=== PATIENT | male | born 1960 | race Caucasian/White ===

== ENCOUNTER 2017-01-09 10:01 | Emergency (ER) | payer OTHER ==
[~2017-01-09] VITALS: Ht 182.9 cm; Wt 86.2 kg
[~2017-01-09 10:01] MED LIST: ALPR2TAB2 PO; BUDE10.2 INH; CARV3.12 PO; HYDR-3658 PO; LEVE250T2 PO; MIRT45TA3 PO; RIFA550T PO; RISP3TAB5 PO; TRIH5TAB2 PO
[2017-01-09] MEDS ORDERED: KETOROLAC TROMETHAMINE INJ 30 MG/ML VIAL ONE (11:00)
[2017-01-09] MEDS: KETOROLAC TROMETHAMINE INJ 30 MG/ML VIAL IM ONE (11:11)
[2017-01-09 13:02] VITALS: BP 128/87
== END 2017-01-09 13:03 | disposition home or self-care (01) ==
LOC: ER 10:03
DX: M54.5 Low back pain (principal); G40.909 Epilepsy, unspecified, not intractable, without status epilepticus; G89.29 Other chronic pain; J44.9 Chronic obstructive pulmonary disease, unspecified; B19.20 Unspecified viral hepatitis C without hepatic coma; Z87.891 Personal history of nicotine dependence; F10.20 Alcohol dependence, uncomplicated; F17.210 Nicotine dependence, cigarettes, uncomplicated; Z91.02 Food additives allergy status
CPT/HCPCS: 72110-TC; A4606; J1885; Z7610

== ENCOUNTER 2022-01-14 10:03 | Inpatient (IN) | payer MEDICARE, OTHER ==
[~2022-01-14] VITALS: Ht 182.9 cm; Wt 54.9 kg
[~2022-01-14 10:03] MED LIST changes: -HYDR-3658 PO; +HYDR-3980 PO; -TRIH5TAB2 PO; +TRIH5TAB3 PO
--- NOTE | 2022-01-14 10:07 | NUR ---
SEEN AND EXAMINED BY DR KING
--- NOTE | 2022-01-14 10:11 | NUR ---
BIBRA 88 FOR GLF FROM BED TO THE FLOOR LAST NIGHT. WAS LYING ON THE FLOOR ALL NIGHT. NO APPARENT TRAUMA NOTED. THE PATIENT BASELINE CONFUSED BUT PER THE PATIENT IS MORE CONFUSED THAN USUAL. THE PATIENT IS RESPONSIVE TO VERBAL STIMULI. RESPIRATION REGULAR AND UNLABORED. ATTACHED TO THE MONITR. WARM BLANKET PROVIDED FOR COMFORT. WILL CONTINUE TO MONITOR THE PATIENT.
--- NOTE | 2022-01-14 10:15 | NUR ---
JAKE (NIECE) [phone] VALENTINO () [phone]
--- NOTE | 2022-01-14 10:21 | NUR ---
TAKEN TO CT
[2022-01-14] MEDS ORDERED: IV NS 0.9% 1,000 ML BAG IV ONE (10:30)
--- NOTE | 2022-01-14 10:45 | NUR ---
[facility]: [phone].
[2022-01-14] MEDS ORDERED: BISA10SU11 RC (11:27)
[2022-01-14] MEDS ORDERED: MORP100S3 SL (11:27)
[2022-01-14] MEDS ORDERED: ALPR2TAB7 PO (11:27)
[2022-01-14] MEDS ORDERED: ACET650S11 RC (11:27)
[2022-01-14] MEDS ORDERED: GABA600T12 PO (11:27)
[2022-01-14] MEDS ORDERED: HYDR-4209 PO (11:27)
[2022-01-14] MEDS ORDERED: LORA-258 SL (11:27)
[2022-01-14] MEDS ORDERED: ONDA4TAB11 SL (11:27)
[2022-01-14] MEDS ORDERED: ALBU18HF2 INH (11:27)
[2022-01-14] MEDS ORDERED: HYOS0.1275 SL (11:27)
[2022-01-14] MEDS ORDERED: QUET100T PO (11:27)
[2022-01-14] MEDS ORDERED: OXYC30TA2 PO (11:27)
[2022-01-14] MEDS ORDERED: RISP0.2515 PO (11:27)
[2022-01-14] MEDS ORDERED: DOCU250C14 PO (11:27)
[2022-01-14] MEDS ORDERED: ZOLP5TAB8 PO (11:27)
--- NOTE | 2022-01-14 12:08 | NUR ---
URINE SAMPLE COLLECTED AND SENT
--- NOTE | 2022-01-14 12:08 | NUR ---
COVID TEST COLLECTED AND SENT
[2022-01-14 12:42] LABS: BILIRUBIN,URINE NEGATIVE (NEGATIVE); COLOR,URINE YELLOW (YELLOW); LEUKOCYTE ESTERASE ,URINE NEGATIVE (NEGATIVE); NITRITE, URINE NEGATIVE (NEGATIVE); PH,URINE 5.5 (5.0-8.0); PROTEIN,URINE 100 mg/dl (NEGATIVE); UGLUCOSE 100 MG/DL mg/dL (NEGATIVE); UROBILINOGEN,URINE 0.2 EU/dL (0.2)
[2022-01-14 12:51] LABS: BASOPHILS % (AUTO) 0.1 % (0.0-2.0); EOSINOPHILS % (AUTO) 0.5 % (0.0-6.0); HEMATOCRIT 24 % (39-51); HEMOGLOBIN 8.2 g/dL (13.5-17.5); LYMPHOCYTES # (AUTO) 0.4 K/uL (0.8-4.8); LYMPHOCYTES % (AUTO) 9.2 % (20.0-44.0); MEAN CORPUSCULAR HGB CONC 34 g/dl (31.0-36.0); MEAN CORPUSCULAR VOLUME 90 fL (80-96); MONOCYTES # (AUTO) 0.3 K/uL (0.1-1.30); MONOCYTES % (AUTO) 6.2 % (2.0-12.0); NEUTROPHILS # (AUTO) 3.9 K/uL (1.8-8.9); WHITE BLOOD COUNT (AUTO) 4.6 K/uL (4.3-11.0)
[2022-01-14 12:53] LABS: PLATELET COUNT (AUTO) 39 K/uL (150-450)
--- NOTE | 2022-01-14 12:54 | NUR ---
RECEIVED CALL FROM LAB. PT CRITICAL RESULT OF PLATELET 39. DR. KING MADE AWARE. NURSE KENROY MADE AWARE.
[2022-01-14 13:16] LABS: CALCIUM, SERUM 10.3 mg/dL (8.5-10.1); CARBON DIOXIDE 23 mmol/L (21-32); CHLORIDE 109 mmol/L (98-107); CREATININE 2.9 mg/dL (0.6-1.3); GLUCOSE 96 mg/dL (74-106); POTASSIUM 3.2 mmol/L (3.5-5.1); SODIUM SERUM 138 mmol/L (136-145); UREA NITROGEN, BLOOD 49 mg/dL (7-18)
[2022-01-14 13:17] LABS: RBC,URINE 21-50 /HPF (0-2); WBC,URINE 0-2 /HPF (0-3)
[2022-01-14 13:19] LABS: SQUAMOUS EPITHELIAL CELL,UR Few /HPF (None Seen); URINE AMORPHOUS URATE Moderate /HPF (None Seen)
[2022-01-14 13:20] LABS: BACTERIA,URINE Moderate /HPF (None Seen)
--- NOTE | 2022-01-14 13:43 | NUR ---
panel on-call paged
--- NOTE | 2022-01-14 13:51 | NUR ---
CALLED NURSING SUP REGARDING PT BED
--- NOTE | 2022-01-14 14:26 | NUR ---
BED GIVEN 304-2
--- NOTE | 2022-01-14 14:38 | NUR ---
REPORT GIVEN TO DESIREE FOR FAM
--- NOTE | 2022-01-14 14:46 | NUR ---
PT TRANSPORTED TO [facility] FLOOR
[2022-01-14 14:52] LABS: BAND % (MANUAL) 6 % (0.0-5.0); LYMPHOCYTES % (MANUAL) 3 % (16-48); MONOCYTES % (MANUAL) 7 % (0-11.0); NEUTROPHILS % (MANUAL) 84 (42-76)
[2022-01-14] MEDS ORDERED: Z GUARD REMEDY 4 OZ OINT TP PRN (15:00)
[2022-01-14] MEDS ORDERED: ONDANSETRON HCL/PF 4 MG/2 ML VIAL IVP PRN (15:00)
--- NOTE | 2022-01-14 15:00 | NUR ---
RN ADMITTING NOTES ADMITTED THIS PATIENT FROM EMERGENCY ROOM, TRANSPORTED VIA STRETCHER ACCOMPANIED BY ER STAFF. PATIENT IS ALERT AND ORIENTED X 2-3. WITH ADMITTING DIAGNOSIS OF ACUTE TOXIC METABOLIC ENCEPHALOPATHY. PATIENT ORIENTED TO STAFF AND ROOM. ON ROOM AIR TOLERATING WELL, SPO2 @100%. NOTED WITH IV ACCESS ON RHAND #22 G AND JENELLE #22G, INTACT AND PATENT, FLUSHES WELL. ALSO WITH F/C INTACT DRAINING CLEAR YELLOW URINE. BODY ASSESSMENT DONE. NOTED WITH SACRAL WOUND UTD AND RIGHT BUTTOCKS WOUND UTD. WOUND CONSULT ORDERED. PHOTOS TAKEN, PLACED IN CHART. SAFETY MEASURES IN PLACE. BED IN LOWEST AND LOCKED POSITION, SR UP X2, CALL LIGHT PLACED WITHIN EASY REACH. WILL CONTINUE TO MONITOR.
[2022-01-14] MEDS: IV NS 0.9% 1,000 ML IV PRN (15:34)
[2022-01-14 16:00] VITALS: BP 145/67
[2022-01-14] MEDS: CEFEPIME 2 GM in IV D5W 100 ML IV SCH (18:25)
--- NOTE | 2022-01-14 19:33 | NUR ---
MS VILLASENOR OPENING NOTES PATIENT A/OX2-3, GERMAN SPEAKING. RECEIVED REPORT, WILL CONTINUE PLAN OF CARE. PATIENT TOLERATING ROOM AIR WELL. PER OR, PATIENT WILL BE NPO BY MIDNIGHT, PATIENT AWARE. R HAND AND JENELLE #22 IVS INTACT. NO SIGNS OF REDNESS OR INFILTRATION NOTED. SIDE RAILS UPX2, WILL CONTINUE TO MONITOR. Addendum: 01/14/22 at 2007 by EDWIN MICHEL RN MANAGER COLLECTION AT BEDSIDE, MANAGER COLLECTION ALSO AWARE PATIENT NPO AFTER MIDNIGHT
--- NOTE | 2022-01-14 19:40 | NUR ---
MS RN NOTES SPOKE WITH MARE CAMPBELL, PER PATIENT, MARE IS CLINICAL NURSING COORDINATOR FOR UPDATES. MARE WOULD LIKE DOCTOR TO SPEAK WITH HER TOMORROW MORNING, WILL ENDORSE TO ONCOMING SHIFT.
[2022-01-14 20:00] VITALS: BP 124/63
--- NOTE | 2022-01-14 20:07 | NUR ---
MS RN NOTES DOCTOR AND AUTOMOBILE CARPETS MOLDER AT BEDSIDE.
[2022-01-14 21:34] LABS: ALANINE AMINOTRANSFERASE 16 U/L (12-78); ALBUMIN 1.8 g/dL (3.4-5.0); ALKALINE PHOSPHATASE 101 U/L (46-116); ASPARTATE AMINOTRANSFERASE 18 U/L (15-37); BILIRUBIN,DIRECT 0.2 mg/dL (0.0-0.2); BILIRUBIN,TOTAL 0.7 mg/dL (0.2-1.0)
--- NOTE | 2022-01-14 23:43 | NUR ---
MS RN NOTES MRSA NASAL SWAB COLLECTED VIA R NARE, CHARGE NURSE AWARE.
--- NOTE | 2022-01-15 01:28 | NUR ---
MS RN NOTES FIRER LOCOMOTIVE CRANE AT BEDSIDE, PATIENT REQUESTED TO USE RESTROOM WITH ASSISTANCE. PATIENT IS FALL RISK. PATIENT AGREED TO USE BED GODFREY.
[2022-01-15] MEDS: IV NS 0.9% 1,000 ML IV PRN ×2 (05:13→20:34)
--- NOTE | 2022-01-15 06:38 | NUR ---
MS RN CLOSING NOTES PATIENT AWAKE IN BED, A/OX2, TURKS AND CAICOS ISLANDER SPEAKING, SLOW SPEAKING; REQUESTED FOR TV TO BE TURNED ON; NO S/S OF SOB; NO PAIN OR DISTRESS NOTED; PATIENT TOLERATING ROOM AIR WELL; JENELLE 22G INTACT, FLUSHING WELL; NO SIGNS OF REDNESS OR INFILTRATION; TOLERATING NS @ 75ML/HR; SUÁREZ CATH IN PLACE, WITH CLOUDY YELLOWISH URINE OUTPUT OF 600CCS; SIDE RAILS UPX2, CALL LIGHT WITHIN REACH ALL NEEDS RENDERED, WILL ENDORSE PLAN OF CARE TO ONCOMING SHIFT
[2022-01-15 06:59] LABS: BASOPHILS % (AUTO) 0.1 % (0.0-2.0); EOSINOPHILS % (AUTO) 0.6 % (0.0-6.0); HEMATOCRIT 22 % (39-51); HEMOGLOBIN 7.5 g/dL (13.5-17.5); LYMPHOCYTES # (AUTO) 0.4 K/uL (0.8-4.8); LYMPHOCYTES % (AUTO) 11.3 % (20.0-44.0); MEAN CORPUSCULAR HGB CONC 34 g/dl (31.0-36.0); MEAN CORPUSCULAR VOLUME 90 fL (80-96); MONOCYTES # (AUTO) 0.3 K/uL (0.1-1.30); MONOCYTES % (AUTO) 6.9 % (2.0-12.0); NEUTROPHILS # (AUTO) 3.1 K/uL (1.8-8.9); NEUTROPHILS % (AUTO) 81.1 % (43.0-81.0); RED BLOOD CELL COUNT(AUTO) 2.47 MIL/uL (4.5-6.0); WHITE BLOOD COUNT (AUTO) 3.8 K/uL (4.3-11.0)
[2022-01-15 07:19] LABS: PLATELET COUNT (AUTO) 35 K/uL (150-450)
--- NOTE | 2022-01-15 07:20 | NUR ---
MS RN NOTES RECEIVED REPORT FROM LAB, CRITICAL PLATELET RESULT 35. MD IS AWARE, PATIENT PLATELET ON ADMISSION 39.
[2022-01-15 08:00] VITALS: BP 143/71
[2022-01-15] MEDS: ACETAMINOPHEN 325 MG TABLET PO PRN ×2 (09:19→22:08)
[2022-01-15] MEDS: PANTOPRAZOLE 40 MG VIAL IV SCH (09:19)
--- NOTE | 2022-01-15 09:19 | NUR ---
given tylenol for back pain.
--- NOTE | 2022-01-15 10:17 | NUR ---
WOUND CARE CONSULT: PT PRESENTS WITH CACHEXIA AND UNSTAGEABLE NECROTIC PRESSURE ULCERS TO SACRUM AND RT BUTTOCK, PRESENT ON ADMISSION. ODOR NOTED. SURGICAL CONSULT CALLED TO DR MARIANA OHARA. RECOMMENDATIONS MADE FOR SKIN PROTECTION AND WOUND CARE. DISCUSSED WITH NURSING STAFF. PT IS ON [facility] BED. IN AGREEMENT WITH PLAN OF CARE. DIETARY CONSULT IN PLACE. Addendum: 01/15/22 at 1020 by CAROLYN ANDRADE WNDNU Amended: Links added.
[2022-01-15 10:45] LABS: IRON, SERUM 106 ug/dl (50-175); TOTAL IRON BINDING CAPACITY 118 ug/dl (250-450)
[2022-01-15] MEDS ORDERED: QUETIAPINE FUMARATE 100 MG TABLET PO PRN (11:00)
[2022-01-15] MEDS ORDERED: ACETAMINOPHEN 650 MG/SUPP.RECT RC PRN (11:00)
[2022-01-15] MEDS ORDERED: HYOSCYAMINE SULFATE 0.125 MG TAB.SUBL SL PRN (11:00)
[2022-01-15] MEDS ORDERED: ONDANSETRON HCL/PF 4 MG/2 ML VIAL IV PRN (11:00)
[2022-01-15] MEDS ORDERED: HYDROCODONE/APAP 5/325MG TABLET PO PRN (11:00)
[2022-01-15] MEDS ORDERED: ALBUTEROL FS 2.5 MG/3 ML VIAL.NEB NEB PRN (11:00)
[2022-01-15] MEDS ORDERED: BISACODYL SUPP (10 MG) 10 MG/SUPP.RECT SUPP.RECT RC PRN (11:00)
[2022-01-15] MEDS ORDERED: LORAZEPAM 0.5 MG TABLET SL PRN (11:00)
--- NOTE | 2022-01-15 11:30 | NUR ---
niece and girlfriend calling freq. to check on pt.
[2022-01-15 11:35] LABS: ALANINE AMINOTRANSFERASE 19 U/L (12-78); ALBUMIN 1.5 g/dL (3.4-5.0); ALKALINE PHOSPHATASE 81 U/L (46-116); ASPARTATE AMINOTRANSFERASE 17 U/L (15-37); BILIRUBIN,TOTAL 0.6 mg/dL (0.2-1.0); CALCIUM, SERUM 10.2 mg/dL (8.5-10.1); CARBON DIOXIDE 20 mmol/L (21-32); CHLORIDE 113 mmol/L (98-107); CREATININE 2.7 mg/dL (0.6-1.3); GLUCOSE 115 mg/dL (74-106); MAGNESIUM 2.2 mg/dL (1.8-2.4); PHOSPHORUS 2.4 mg/dL (2.5-4.9); POTASSIUM 3.4 mmol/L (3.5-5.1); SODIUM SERUM 140 mmol/L (136-145); TOTAL PROTEIN, SERUM 8.6 g/dL (6.4-8.2); UREA NITROGEN, BLOOD 45 mg/dL (7-18)
[2022-01-15] MEDS: FUROSEMIDE 20 MG/2 ML VIAL IV SCH (12:08)
--- NOTE | 2022-01-15 13:00 | NUR ---
social service in and requesting psych consult. pt. verb. to her suicidal ideation. states pt. altered and psych consult not appropriate.
[2022-01-15] MEDS: ENSURE ENLIVE 237 ML LIQUID (VANILLA) PO SCH ×2 (13:30→17:47)
--- NOTE | 2022-01-15 14:20 | NUR ---
SS Consult: SS Consult requested for safe discharge planning. Per EMR, the paramedics were called to the home by and found the pt. on the floor, confused, with slurred speech. The pt. is a 61 -year old male. Upon SS consult, the pt. is Alert & Oriented x 3 and makes good eye contact. The pt. appears unkempt. Pt. has slurred speech and has depressed mood and flat affect. SW explored pt.s living situation. Per pt. he lives at home [[address] [address]] with his elderly , Татьяна Hart [phone]. Pt. gave SW verbal consent to speak with his . SW explored pt.s drug & ETOH use. Pt. denies drug or alcohol use. SW explored pt.s mental health Hx. Pt. states he ahs been diagnosed with Schizoaffective Disorder in the past and is on medication: Risperdal, Wellbutrin, Seroquel & Xanax. Pt. states he experiences intermittent SI and has no plan for suicide. Pt. states he also experiencing auditory hallucination telling him to kill himself and visual hallucinations of people dancing per pt. Pt. denies current HI. SW spoke to pt.'s nurse, Annette and ordered Psych consult. Per pt., he allegedly ambulates at home with walker but usually stays in bed. Per nursing reports, pt. has necrotic pressure ulcers. SW explored pt.s support system, caregiver, etc. Pt. states it is just him and his and has no other caregivers and no children or other family. SW called and spoke to the pt.s , Татьяна Hart [phone] to gather collateral information. did confirm they have no caregivers or help at home. Татьяна states she helps the pt. as much as she can but she sound elderly as well. SW will follow up and make APS report to confirm Татьяна is ok due to safety concerns. Plan: Patient stated he is open to going to a SNF placement or home with HH & IHSS caregivers. SW provided pt. with senior resources including: HELP AT HOME CAREGIVER SUPPORT: In Home Support Services (Must have Medi-Lauri to be eligible) *Ask for a list of agencies that provide services to assist with care in the home. Local Senior Centers also have listings of care providers. ABUSE PREVENTION: ELDER ABUSE HOTLINE (16/06) ADULT PROTECTIVE SERVICES HOTLINE LONG-TERM CARE [facility] Region AREA ON AGING (HOTLINE) ADULT DAY HEALTH CARE CARE CENTERS: Private pay or Medi-[facility] funded adult day care [facility] Day Health Care [facility] , [facility] , [facility] , [facility] Adult Day Health Care , [facility] Adult Day Health Care , [facility] Adult Daycare Center , [place] ONE Generation [place] , [facility] , [place] ALZHEIMERS DISEASE/DEMENTIA: Alzheimers Association Helpline [facility] Chapter www.alz.org/[facility] Department of Aging www.lacity.org Family Caregiver Foley www.caregiver.org [place] Caregiver Resources Center/Family Support www.ka[facility].org CANCER RESOURCES: Nigerian Cancer Society www.cancer.org Cancer Support Community www.CancerSupportVvsb.org: CancerCare www.cancercare.org Tre [facility] Cancer Support Center www.spark.org COMMUNITY HEALTH ASSOCIATIONS: AARP www.aarp.org ALS Association (ask for Guera) www.als.org Nigerian Diabetes Association www.diabetes.org Nigerian Heart Association www.heart.org Nigerian Lung Association www.lungusa.org Nigerian Parkinson Disease Association www.apdaparkinson.org Nigerian Platte , www.redcross.org Arthritis Foundation www.arthritis.org Crohns & Colitis Foundation of Nigerian www.ccfa.org/chapters/[place] National Multiple Sclerosis Society www.nationalmssociety.org Myasthenia Gravis Foundation www.myasthenia-ca.org National Stroke Association www.stroke.org CONSERVATORSHIP & GUARDIANSHIP: AAREmery Emma Darling Legal Services Center for Health Care Rights Eldercare Information and Referral Community Affairs Manager Foundation [facility]: [facility] Referral Service [facility] Legal Services Office of the Public Guardian Stewardson EYESIGHT DISORDER RESOURCES: Nigerian Macular Degeneration Foundation [facility] www.bragreen cross hospitalinstitute.org GRIEF AND BEREAVEMENT RESOURCES: The Gathering Place , [facility] THE HOPE Connection , [facility] Bereavement Center , [place] HEARING DISORDER RESOURCES: [place] Telephone Access Program Deaf and Disabled Telecommunications Program www.ddtp.cpuc.ca.gov HearRx Hearing Centers ([place]) Better Hearing Systems , [place] GLAD ([facility] Agency on Deafness) V/ TTY; Riveting Machine Operator Declan [facility] Hearing Foundation -low income hearing aid assistance www.[facility] campusfoundation.org [place] Hearing Care , Tiffany HOME SAFETY MODIFICATIONS AND EQUIPMENT: Senior centers have additional referrals. [facility] and Bday Investment Dept. Handyworker Program (low income) or Visit http://hcidla.[facility].org/obk-esiihf-xn for more information National Seating and Mobility and/or ; Forever Active www.foreveractivemed.Qual [place] Stay Home Safe www.Stayhomesafe.Qual Canal LIFE ALERT RESPONSE SYSTEM: Powerhouse Biologicsline Services 157-621-1974 www. Urban Metrics Life Alert 801-480-8691 www.Lucidity (MemberRx) Life Station 180-992-9572 www.Offeramaation.Qual Canal Safe Return 835-802-7327 www.alz.or/safereturn Cell Phones for Seniors www.TechFaith Wireless Technology MEALS AND FOOD PROGRAMS: [place] Meals on Wheels [phone] [place] Meals on Wheels [phone] [facility] [phone] Seth to the Homebound [phone] [place] to the Homebound [phone] [facility] to the Homebound [phone] [facility] to the Homebound [phone] [facility] Suleman [place] [phone] [facility] [phone] ONE Generation [phone] [facility] Health Systems [phone] [facility] [phone] Meals on Wheels [phone] For all ages: $6.85/ meal w side. Delivered M-F from 10 am-1pm. Application and payment is done over the phone. Frozen meals available for weekends. Emergency Food [facility] [phone] Jeremias Assembler [phone] [facility] [phone] Heidi Mcdowell Outreach- Brown bag lunches [phone] [facility] [phone] MEAL/GROCERY DELIVERY PROGRAMS: [facility] Gourmet Meals [phone]- [facility] [phone]- [facility] Magic Kitchen [phone] Moms Meals [phone] (ask Wilson for Discount Select grocery stores may provide delivery. MEDICAL INSURANCE SUPPORT SERVICES: Center for Health Care Rights [phone] Health Insurance Counseling/Advocacy Programs (HICAP)-Must have Medicare. Offers counseling for Medi-Lauri eligibility [phone] [facility] of Public Assembler [phone] www.[facility].ca.gov Medicare [phone] www.socialsecurity.org Social Security [phone] SENIOR ACTIVITY PROGRAMS: *Contact a local senior center, adult school, recreation facility or community college for education, fitness, recreation, and social programs. Aquatic Therapy and Adapted Exercise programs through [facility] [phone] Encore [facility] [phone] www.[facility]/encore H2U- Senior Friends [phone] [place] Senior Programs [phone] www.oasisnet.org Suddenly 65 www.ggmnstky11.com SENIOR CENTERS: [facility] [phone] [facility] [phone] [phone] [facility] [phone] [facility] [phone] [facility] [phone] [facility] [phone] [facility] [phone] One Generation, [facility] [phone] [facility] [phone] [facility] [phone] [facility] [phone] [facility] [phone] TRANSPORTATION: Local [facility] Centers may have applications for transportation programs and additional resources. ACCESS Services [phone] Transportation for seniors and disabled persons 7 days a week requiring 254 hr. advance reservation. Must apply and register for program justin eligible. Prosensa [phone] or [phone] Transportation for seniors and persons with ADA card/metro disabled card in the [facility]. M-F only. Must register for services. ONE GENERATION [phone] Serves 65 years + in conjunction with Magnetecs program. Must be registered with both programs. A to B Transport [phone] Provides wheelchair/gurney van service. Adult Medical Transport [phone] Accepts [facility] with prior authorization. Care Van [phone] Provides wheelchair Transport. [facility] Wide Transportation [phone] Provides gurney service [facility] [phone] Gurney Transport. [facility] Transportation [phone] wheelchair & gurney transport [facility] Transportation [phone] wheelchair & gurney transport [place] Non-Emergency Transport [phone] wheelchair & gurney transport [facility] Living [place] [phone] Short Term Transportation primarily for adults with disabilities on social security income. Nominal fee may apply and a reservation is required. [facility] Cab [phone] or [phone] SendMe [phone] [place] [address] Referral Services -[phone] For additional programs & services VETERANS RESOURCES: Submissions for Aid and Attendance should be done directly to Federal VA office locatd at : [address] [facility] [phone] National Caregiver Support Line [phone] Lauri Terrell Veterans Services Field Office [phone] [place] Department of Affairs [phone] Pension Information [phone]
--- NOTE | 2022-01-15 14:28 | NUR ---
rn spoke with charge nurse and psych consult ordered due to hx of s/i and depression.chrg. rn to notify psych md dr. lopez senior fire protection engineer.
[2022-01-15 15:54] LABS: LYMPHOCYTES % (MANUAL) 7 % (16-48); MONOCYTES % (MANUAL) 6 % (0-11.0); NEUTROPHILS % (MANUAL) 87 (42-76)
[2022-01-15 16:00] VITALS: BP 116/59
--- NOTE | 2022-01-15 17:15 | NUR ---
RN NOTIFIED DR. SPEARS OF PHOSPHOROUS LEVEL 2.4.MD WILL FOLLOW UP.
[2022-01-15] MEDS: DAKINS QUARTER STRENGTH (0.125%) 480 ML BOTTLE TOP SCH (17:53)
[2022-01-15] MEDS: GABAPENTIN 300 MG CAPSULE PO SCH (17:58)
[2022-01-15] MEDS: risperiDONE 1 MG TABLET PO SCH (17:58)
[2022-01-15] MEDS: DOCUSATE SODIUM 250 MG CAPSULE PO SCH (17:58)
--- NOTE | 2022-01-15 18:00 | NUR ---
received pt. in am,calling out freq. confused at times,cooperative and med compliant.family in to visit.
[2022-01-15] MEDS: CEFEPIME 2 GM in IV D5W 100 ML IV SCH (18:03)
--- NOTE | 2022-01-15 19:15 | NUR ---
MS RN OPENING NOTES: RECEIVED PATIENT IN BED, AWAKE, A/O X4. NO S/S OF DISTRESS NOTED. WITH FAMILY MEMBERS AT THE BEDSIDE. HOB ELEVATED. WITH SUÁREZ CATHETER INTACT DRAINING YELLOW URINE OUTPUT. CALL LIGHT WITHIN REACH. BED ALARM ON. BED IN LOWEST AND LOCKED POSITION. PER FAMILY MEMBER, PATIENT HAD A LARGE BM EARLIER, PATIENT WENT TO THE BEDSIDE COMMODE ASSISTED BY THE FAMILY MEMBER.
[2022-01-15 20:05] VITALS: BP 128/71
[2022-01-15] MEDS: MORPHINE SULFATE INJ 2 MG/ML DISP.SYRIN IV PRN (20:15)
[2022-01-15 20:50] LABS: HEMOGLOBIN 6.6 g/dL (13.5-17.5)
--- NOTE | 2022-01-15 20:52 | NUR ---
RECEIVED A CALL FROM LAB FOR HGB 6.6, INFORMED ADONIS HARMON.
[2022-01-15 21:21] LABS: THYROID STIMULATING HORMONE 0.724 uIU/mL (0.358-3.74)
[2022-01-15 22:33] LABS: FERRITIN > 1000 ng/mL (8-388)
--- NOTE | 2022-01-15 22:42 | NUR ---
PATIENT SIGNED THE CONSENT FOR BLOOD TRANSFUSION AND ATTACHED TO THE CHART.
--- NOTE | 2022-01-15 23:36 | NUR ---
CALLED THE BLOOD BANK AND TALKED TO STEFAN ALSTON: TO FOLLOW UP IF THE ONE UNIT PRBC IS READY, NOT READY YET ACCORDING TO HIM.
[2022-01-16] VITALS (9 sets, daily range): BP systolic 108–122; BP diastolic 52–64
--- NOTE | 2022-01-16 01:57 | NUR ---
CALLED THE LAB AND SPOKE TO PHUONG ALSTON: PRBC, AND HE SAID THAT NOBODY IN THE BLOOD BANK RIGHT NOW THAT CAN ISSUE THE PRBC UNTIL 0600 TODAY, INFORMED ADONIS HARMON.
[2022-01-16] MEDS: MORPHINE SULFATE INJ 2 MG/ML DISP.SYRIN IV PRN ×3 (02:07→20:15)
--- NOTE | 2022-01-16 02:25 | NUR ---
PATIENT SIGNED THE CONSENT FOR EXCISIONAL DEBRIDEMENT OF RIGHT BUTTOCK AND SACRAL PRESSURE ULCER AND ATTACHED TO THE CHART.
--- NOTE | 2022-01-16 07:02 | NUR ---
CALLED THE BLOOD BANK AND SPOKE TO KATJA ALSTON: SHE SAID THAT PRBC WILL BE READY IN 30MINS AND SHE WILL CALL THE RN DAYSHIFT WHEN IT'S READY, WILL ENDORSE TO THE NEXT SHIFT RN.
[2022-01-16 07:07] LABS: IMMUNOGLOBULIN A, SERUM 7 mg/dL (61-437); IMMUNOGLOBULIN G, SERUM 5351 mg/dL (603-1613); IMMUNOGLOBULIN M, SERUM <5 mg/dL (20-172)
--- NOTE | 2022-01-16 07:34 | NUR ---
RECEIVED A CALL FROM BLOOD BANK RE: BLOOD IS READY, ENDORSED TO THE RN KULDIP.
--- NOTE | 2022-01-16 08:06 | NUR ---
RN Opening Note Patient received in bed AO x 4, able to responds all stimuli. Respiratory even and unlabored on room air. No distress observed. Skin is warm to touch, keep clean/dry, intact IV site. Kept elevated HOB for ensure airway/aspiration precaution and remain lower position of the bed for safety. call light within reach, will continue to monitor.
[2022-01-16 08:07] LABS: *ANA ANTI-CENTROMERE B AB <0.2 AI (0.0-0.9); *ANA ANTI-DNA(DS) AB, QN <1 IU/mL (0-9); *ANA ANTI-JO-1 <0.2 AI (0.0-0.9); *ANA ANTICHROMATIN ANTIBODY <0.2 AI (0.0-0.9); *ANA RNP ANTIBODIES <0.2 AI (0.0-0.9); *ANA SJOGREN'S ANTI-SS-A <0.2 AI (0.0-0.9); *ANA SJOGREN'S ANTI-SS-B <0.2 AI (0.0-0.9); *ANAANTI-SCLERODERMA-70 AB <0.2 AI (0.0-0.9); *ANASMITH AB <0.2 AI (0.0-0.9)
[2022-01-16] MEDS: FUROSEMIDE 20 MG/2 ML VIAL IV SCH (08:24)
[2022-01-16] MEDS: DOCUSATE SODIUM 250 MG CAPSULE PO SCH ×2 (08:24→17:24)
[2022-01-16] MEDS: risperiDONE 1 MG TABLET PO SCH ×2 (08:24→17:24)
[2022-01-16] MEDS: GABAPENTIN 300 MG CAPSULE PO SCH ×2 (08:24→17:25)
[2022-01-16] MEDS: PANTOPRAZOLE 40 MG VIAL IV SCH (08:24)
[2022-01-16] MEDS: ENSURE ENLIVE 237 ML LIQUID (VANILLA) PO SCH ×2 (08:25→17:25)
[2022-01-16] MEDS: DAKINS QUARTER STRENGTH (0.125%) 480 ML BOTTLE TOP SCH (08:26)
[2022-01-16 09:07] LABS: *SPE A/G RATIO 0.4 (0.7-1.7); *SPE ALPHA-1-GLOBULIN 0.3 g/dL (0.0-0.4); *SPE ALPHA-2-GLOBULIN 1.3 g/dL (0.4-1.0); *SPE BETA GLOBULIN 0.9 g/dL (0.7-1.3); *SPE M-SPIKE 3.7 g/dL (Not Observed)
--- NOTE | 2022-01-16 11:35 | NUR ---
APS Report: HAKAN completed APS report #[phone] for pt. self neglect. Pt. has no caregiver, support system and stated he usually stays in bed at home. Pt. presented at admission with necrotic pressure ulcer. Pt.'s stated pt. is unable to care for self. HAKAN also made APS report #[phone] for , Gaviota Hart for self neglect as well. Татьяна is elderly seems confused, with slow speech and processing and stated she is independent with ADL's and no support system. HAKAN concerned regarding her safety.
[2022-01-16] MEDS ORDERED: busPIRone 5 MG TABLET PO SCH (13:00)
[2022-01-16] MEDS: DIVALPROEX SODIUM 250 MG TABLET.DR PO SCH ×2 (13:23→17:24)
--- NOTE | 2022-01-16 14:30 | NUR ---
Given Morphine 2mg via IV.
[2022-01-16] MEDS ORDERED: LIDOCAINE 2%-EPI 1:100,000 30 ML VIAL TP STA (14:52)
[2022-01-16] MEDS ORDERED: SILVER NITRATE APPLICATOR 1 EA BOX TP ONE (15:00)
[2022-01-16] MEDS: IV NS 0.9% 1,000 ML IV PRN (15:57)
[2022-01-16] MEDS: CEFEPIME 2 GM in IV D5W 100 ML IV SCH (17:29)
[2022-01-16 18:10] LABS: ALBUMIN 1.5 g/dL (3.4-5.0); BILIRUBIN,TOTAL 0.4 mg/dL (0.2-1.0); CALCIUM, SERUM 8.8 mg/dL (8.5-10.1); CREATININE 2.6 mg/dL (0.6-1.3); POTASSIUM 3.2 mmol/L (3.5-5.1); TOTAL PROTEIN, SERUM 8.8 g/dL (6.4-8.2)
--- NOTE | 2022-01-16 18:47 | NUR ---
RN Closing Note Patient is resting in bed, no distress observed. S/p RBC x 1 unit and no adverse reaction observed. Respiratory even and unlabored on room air. Skin is warm to touch, keep clean/dry. Kept elevated HOB for ensure airway and aspiration precaution, Also lower position of the bed for safety. Informed MD regarding potassium and sodium level, no new order at this time. Call light within reach, all needs met. will endorse emotional support teacher.
--- NOTE | 2022-01-16 19:15 | NUR ---
MS RN OPENING NOTES: RECEIVED PATIENT RESTING IN BED, AWAKE, A/O X4.NO S/S OF DISTRESS NOTED. COMPLAINING OF PAIN 07/03. HOB ELEVATED. CALL LIGHT WITHIN REACH. BED ALARM ON. BED IN LOWEST AND LOCKED POSITION. WITH FAMILY MEMBERS AT THE BEDSIDE. PATIENT APPEARS HAPPY AND COMFORTABLE. HAD ONE UNIT OF PRBC TODAY.
[2022-01-16 20:24] LABS: BASOPHILS % (AUTO) 0.3 % (0.0-2.0); EOSINOPHILS % (AUTO) 0.7 % (0.0-6.0); HEMATOCRIT 22 % (39-51); HEMOGLOBIN 7.6 g/dL (13.5-17.5); LYMPHOCYTES # (AUTO) 0.5 K/uL (0.8-4.8); LYMPHOCYTES % (AUTO) 15.7 % (20.0-44.0); MEAN CORPUSCULAR HGB CONC 34 g/dl (31.0-36.0); MEAN CORPUSCULAR VOLUME 89 fL (80-96); MONOCYTES # (AUTO) 0.2 K/uL (0.1-1.30); MONOCYTES % (AUTO) 7.5 % (2.0-12.0); NEUTROPHILS # (AUTO) 2.4 K/uL (1.8-8.9); NEUTROPHILS % (AUTO) 75.8 % (43.0-81.0); RED BLOOD CELL COUNT(AUTO) 2.51 MIL/uL (4.5-6.0); WHITE BLOOD COUNT (AUTO) 3.1 K/uL (4.3-11.0)
[2022-01-16 20:28] LABS: PLATELET COUNT (AUTO) 30 K/uL (150-450)
[2022-01-16] MEDS ORDERED: ZOLPIDEM TARTRATE 10 MG TABLET PO PRN (20:30)
--- NOTE | 2022-01-16 20:32 | NUR ---
RECEIVED A CALL FROM THE LAB, PLATELET OF 30,000, INFORMED DRAWING OPERATOR FAUSTINO, NO ORDER.
[2022-01-16 21:00] LABS: EOSINOPHILS % (MANUAL) 2 % (0-4); LYMPHOCYTES % (MANUAL) 15 % (16-48); MONOCYTES % (MANUAL) 8 % (0-11.0); NEUTROPHILS % (MANUAL) 75 (42-76)
[2022-01-16] MEDS ORDERED: MIRTAZAPINE 15 MG TABLET PO SCH (22:00)
[2022-01-17] MEDS: MORPHINE SULFATE INJ 2 MG/ML DISP.SYRIN IV PRN ×4 (02:04→15:58)
[2022-01-17] MEDS: IV NS 0.9% 1,000 ML IV PRN (02:10)
[2022-01-17 07:38] LABS: BASOPHILS % (AUTO) 0.3 % (0.0-2.0); EOSINOPHILS % (AUTO) 0.7 % (0.0-6.0); HEMATOCRIT 23 % (39-51); HEMOGLOBIN 7.8 g/dL (13.5-17.5); LYMPHOCYTES # (AUTO) 0.5 K/uL (0.8-4.8); LYMPHOCYTES % (AUTO) 18.2 % (20.0-44.0); MEAN CORPUSCULAR HGB CONC 34 g/dl (31.0-36.0); MEAN CORPUSCULAR VOLUME 90 fL (80-96); MONOCYTES # (AUTO) 0.2 K/uL (0.1-1.30); MONOCYTES % (AUTO) 7.7 % (2.0-12.0); NEUTROPHILS # (AUTO) 1.8 K/uL (1.8-8.9); NEUTROPHILS % (AUTO) 73.1 % (43.0-81.0); RED BLOOD CELL COUNT(AUTO) 2.57 MIL/uL (4.5-6.0); WHITE BLOOD COUNT (AUTO) 2.5 K/uL (4.3-11.0)
[2022-01-17 08:00] VITALS: BP 120/64
--- NOTE | 2022-01-17 08:00 | NUR ---
RN Opening Note Patient received in bed AO x 4, able to responds all stimuli. No distress observed. Respiratory even and unlabored on room air. Skin is warm to touch, keep clean/dry, intact IV site. Kept elevated HOB for ensure airway/aspiration precaution and remain lower position of the bed for safety. call light within reach, will continue to monitor.
[2022-01-17 08:13] LABS: PLATELET COUNT (AUTO) 30 K/uL (150-450)
[2022-01-17] MEDS: risperiDONE 1 MG TABLET PO SCH (08:23)
[2022-01-17] MEDS: GABAPENTIN 300 MG CAPSULE PO SCH (08:23)
[2022-01-17] MEDS: ENSURE ENLIVE 237 ML LIQUID (VANILLA) PO SCH (08:24)
[2022-01-17] MEDS: DIVALPROEX SODIUM 250 MG TABLET.DR PO SCH ×2 (08:24→13:30)
[2022-01-17] MEDS: DOCUSATE SODIUM 250 MG CAPSULE PO SCH (08:24)
[2022-01-17] MEDS: FUROSEMIDE 20 MG/2 ML VIAL IV SCH (08:24)
[2022-01-17] MEDS: DAKINS QUARTER STRENGTH (0.125%) 480 ML BOTTLE TOP SCH (08:32)
[2022-01-17] MEDS ORDERED: PANTOPRAZOLE 40 MG/PACK PACK PO SCH (09:00)
--- NOTE | 2022-01-17 10:00 | NUR ---
Patient noticed potassium level was 3.2 yesterday and no replaced, new order kdur 40 meq, also plt level CL 30, MD made aware.
[2022-01-17] MEDS ORDERED: POTASSIUM CHLORIDE 20 MEQ TAB.PRT.SR PO ONE (10:30)
[2022-01-17] MEDS ORDERED: DIVA250T4 PO (13:59)
[2022-01-17] MEDS ORDERED: DOXY-326 PO (13:59)
[2022-01-17] MEDS ORDERED: FURO10VI IV (13:59)
[2022-01-17] MEDS ORDERED: LEVO500T90 PO (13:59)
[2022-01-17] MEDS ORDERED: SODI473S8 TOP (13:59)
--- NOTE | 2022-01-17 16:15 | NUR ---
Patient discharge to [facility] and given report Amulet RN include negative Covid result, oral ABX, and medications informations. Also given report 2 flaring machine operator. Patient in stable condition. Wound picture taken on sacral and right buttock.
--- NOTE | 2022-01-18 11:48 | NUR ---
APS follow up: SW received call from APS worker asking if pt. is still in house. SW notified her that the pt. was discharged to [facility]. She is agreeable and will follow up with pt. there.
== END 2022-01-17 16:30 | DRG 166 ==
LOC: ER 10:08 → MED 14:32 → TELE 01-15 04:06 → MED 01-15 05:46
PROVIDERS: ADMIT Hospitalist; ATTEND Nurse Practitioner Acute Care
PROC: 30233N1 Transfusion of Nonautologous Red Blood Cells into Peripheral Vein, Percutaneous Approach (ICD-10-PCS; principal; 2022-01-15)
PROC: 0JB90ZZ Excision of Buttock Subcutaneous Tissue and Fascia, Open Approach (ICD-10-PCS; 2022-01-17)
PROC: 0KBP0ZZ Excision of Left Hip Muscle, Open Approach (ICD-10-PCS; 2022-01-17)
PROC: 0KBN0ZZ Excision of Right Hip Muscle, Open Approach (ICD-10-PCS; 2022-01-17)
DX: J15.9 Unspecified bacterial pneumonia (principal); L89.154 Pressure ulcer of sacral region, stage 4; G92.8 Other toxic encephalopathy; C90.00 Multiple myeloma not having achieved remission; D61.818 Other pancytopenia; J90 Pleural effusion, not elsewhere classified; N17.9 Acute kidney failure, unspecified; J98.11 Atelectasis; R45.851 Suicidal ideations; D68.9 Coagulation defect, unspecified; R64 Cachexia; I96 Gangrene, not elsewhere classified; Z68.1 Body mass index [BMI] 19.9 or less, adult; W19.XXXD Unspecified fall, subsequent encounter; E83.52 Hypercalcemia; L89.310 Pressure ulcer of right buttock, unstageable; G40.909 Epilepsy, unspecified, not intractable, without status epilepticus; B19.20 Unspecified viral hepatitis C without hepatic coma; J44.9 Chronic obstructive pulmonary disease, unspecified; F25.9 Schizoaffective disorder, unspecified; F32.A Depression, unspecified; Z20.822 Contact with and (suspected) exposure to COVID-19; Z79.899 Other long term (current) drug therapy; Z88.8 Allergy status to other drugs, medicaments and biological substances; Z91.018 Allergy to other foods; Z79.51 Long term (current) use of inhaled steroids; Z87.898 Personal history of other specified conditions; E78.5 Hyperlipidemia, unspecified; D64.9 Anemia, unspecified; D69.6 Thrombocytopenia, unspecified; I10 Essential (primary) hypertension; D72.825 Bandemia; E86.0 Dehydration; E88.09 Other disorders of plasma-protein metabolism, not elsewhere classified; E87.6 Hypokalemia; R63.6 Underweight; Z87.891 Personal history of nicotine dependence; Z91.51 Personal history of suicidal behavior; F09 Unspecified mental disorder due to known physiological condition; S22.43XD Multiple fractures of ribs, bilateral, subsequent encounter for fracture with routine healing
CPT/HCPCS: 36415; 70450-TC; 71045-TC; 71250-TC; 76700-TC; 80048-TC; 80053-TC; 80076-TC; 81001; 82140-TC; 82232; 82550-TC; 82728-TC; 82784; 83540-TC; 83605-TC; 83735-TC; 84100-TC; 84155; 84165; 84443-TC; 84484-TC; 85025-TC; 85027-TC; 85610-TC; 85730-TC; 86140-TC; 86225; 86235; 86334; 86431-TC; 86706; 86803; 86850-TC; 87040-TC; 87070-TC; 87081-TC; 87086-TC; 87186-TC; 87340; 92526; 92611-TC; 93307-TC; 95819-TC; A6253; A6403; C9113; C9803; G0378; J0692; J1940; J2270; J3490; J7030; J7050; J7060; J7120; P9016

== ENCOUNTER 2022-01-24 19:17 | Inpatient (IN) | payer MEDICARE, OTHER ==
[~2022-01-24] VITALS: Ht 180.3 cm; Wt 51.1 kg
[~2022-01-24 19:17] MED LIST changes: +ACET650S11 RC; +ALBU18HF2 INH; -ALPR2TAB2 PO; +BISA10SU11 RC; -BUDE10.2 INH; -CARV3.12 PO; +DIVA250T4 PO; +DOCU250C14 PO; +DOXY-326 PO; +FURO10VI IV; +GABA600T12 PO; -HYDR-3980 PO; +HYDR-4209 PO; +HYOS0.1275 SL; -LEVE250T2 PO; +LEVO500T90 PO; +LORA-258 SL; -MIRT45TA3 PO; +ONDA4TAB11 SL; +OXYC30TA2 PO; -RIFA550T PO; +RISP0.2515 PO; -RISP3TAB5 PO; +SODI473S8 TOP; -TRIH5TAB3 PO; +ZOLP5TAB8 PO
--- NOTE | 2022-01-24 19:35 | NUR ---
PT MARLEN AMBULIFE 721 FROM [facility] C/O HBG 6.9 ON 01/23/22. PT A/OX1;WNL TO BASELINE. TOLERATING R/A AT 94%. CONNECTED PT TO POX AND MONITOR. SAFETY MEASURES IN PLACE.
--- NOTE | 2022-01-24 19:37 | NUR ---
WAREHOUSE SORTER F/C PATENT AND INTACT; DRAINING YELLOW URINE WELL
--- NOTE | 2022-01-24 19:55 | NUR ---
ESTABLISHED RFA #20G S/L PATENT AND INTACT. OFFICE MESSENGER HELPER AT PT'S BEDSIDE
[2022-01-24 20:32] LABS: CALCIUM, SERUM 10.7 mg/dL (8.5-10.1); POTASSIUM 4.3 mmol/L (3.5-5.1)
--- NOTE | 2022-01-24 20:37 | NUR ---
CRITICAL LAB BUN 85 CRE 4.0
[2022-01-24 20:44] LABS: ALBUMIN 1.7 g/dL (3.4-5.0); BILIRUBIN,TOTAL 0.4 mg/dL (0.2-1.0); TOTAL PROTEIN, SERUM 11.1 g/dL (6.4-8.2)
[2022-01-24 21:03] LABS: BASOPHILS % (AUTO) 0.4 % (0.0-2.0); EOSINOPHILS % (AUTO) 0.9 % (0.0-6.0); LYMPHOCYTES # (AUTO) 0.5 K/uL (0.8-4.8); LYMPHOCYTES % (AUTO) 18.3 % (20.0-44.0); MEAN CORPUSCULAR HGB CONC 34 g/dl (31.0-36.0); MEAN CORPUSCULAR VOLUME 90 fL (80-96); MONOCYTES # (AUTO) 0.3 K/uL (0.1-1.30); MONOCYTES % (AUTO) 11.3 % (2.0-12.0); NEUTROPHILS # (AUTO) 1.9 K/uL (1.8-8.9); NEUTROPHILS % (AUTO) 69.1 % (43.0-81.0); RED BLOOD CELL COUNT(AUTO) 2.21 MIL/uL (4.5-6.0); WHITE BLOOD COUNT (AUTO) 2.7 K/uL (4.3-11.0)
--- NOTE | 2022-01-24 21:04 | NUR ---
UPDATED JAKE (FAMILY) [phone]
[2022-01-24 21:08] LABS: HEMATOCRIT 20 % (39-51); HEMOGLOBIN 6.7 g/dL (13.5-17.5); PLATELET COUNT (AUTO) 31 K/uL (150-450)
--- NOTE | 2022-01-24 21:30 | NUR ---
COVID ANTIGEN SWAB COLLECTED AND SENT TO LAB
--- NOTE | 2022-01-24 21:39 | NUR ---
JAKE (NIECE DPOA) SIGNED CONSENT FORM FOR BLOOD TRANSFUSION; VERBALIZED UNDERSTANDING TO RISKS VS BENEFITS
--- NOTE | 2022-01-24 21:40 | NUR ---
PT A/OX2/3. PT VERBALLY AGREED TO HAVE BLOOD TRANSFUSION.
[2022-01-24] MEDS ORDERED: Z GUARD REMEDY 4 OZ OINT TP PRN (22:00)
[2022-01-24] MEDS ORDERED: ACETAMINOPHEN 325 MG TABLET PO PRN (22:00)
[2022-01-24] MEDS ORDERED: MAG HYDROX/AL HYDROX/SIMETH 30 ML UDC PO PRN (22:00)
[2022-01-24] MEDS ORDERED: ONDANSETRON HCL/PF 4 MG/2 ML VIAL IVP PRN (22:00)
--- NOTE | 2022-01-24 22:02 | NUR ---
URINE COLLECTED AND SENT TO LAB
[2022-01-24] MEDS: IV D5W 1,000 ML IV PRN (22:22)
[2022-01-24 22:43] LABS: BAND % (MANUAL) 8 % (0.0-5.0); EOSINOPHILS % (MANUAL) 3 % (0-4); LYMPHOCYTES % (MANUAL) 18 % (16-48); METAMYELOCYTES % 1 % (0-0); MONOCYTES % (MANUAL) 11 % (0-11.0); MYELOCYTES % 2 % (0-0); NEUTROPHILS % (MANUAL) 57 (42-76)
[2022-01-24 22:47] LABS: BILIRUBIN,URINE NEGATIVE (NEGATIVE); COLOR,URINE YELLOW (YELLOW); LEUKOCYTE ESTERASE ,URINE NEGATIVE (NEGATIVE); NITRITE, URINE NEGATIVE (NEGATIVE); PROTEIN,URINE 100 mg/dl (NEGATIVE); UGLUCOSE NEGATIVE (NEGATIVE); UROBILINOGEN,URINE 0.2 EU/dL (0.2)
[2022-01-24 22:52] LABS: BACTERIA,URINE Few /HPF (None Seen); SQUAMOUS EPITHELIAL CELL,UR Few /HPF (None Seen); WBC,URINE 0-2 /HPF (0-3)
[2022-01-25] VITALS (13 sets, daily range): BP systolic 107–124; BP diastolic 60–80
--- NOTE | 2022-01-25 | NUR ---
Note ida in EDM - 01/25/22 at 0100 by MARIA GUADALUPE BLOOD TRANSFUSION RBCX1 - HGB 6.7 01/3322 INITIATED RBC TRANSFUSION @ 50ML/HR & WITNESS WITH 2 RNS VSS: BP 118/62, HR 112, RR 18, T 98.3, SPO2 94% ON R/A NO S/SX OF ADVERSE REACTIONS SUCH N/V/D, SOB, FEVER, CHILLS, PAIN. WILL CONTINUE TO MONITOR.
--- NOTE | 2022-01-25 | NUR ---
BLOOD TRANSFUSION RBCX1 - HGB 6.7 01/24/22 INITIATED RBC TRANSFUSION @ 50ML/HR & WITNESS WITH 2 RNS VSS: BP 118/62, HR 112, RR 18, T 98.3, SPO2 94% ON R/A NO S/SX OF ADVERSE REACTIONS SUCH N/V/D, SOB, FEVER, CHILLS, PAIN. WILL CONTINUE TO MONITOR.
--- NOTE | 2022-01-25 00:15 | NUR ---
BLOOD TRANSFUSION RBC VSS: BP 128/62, HR 116, RR 18, T 98.3, SPO2 94% ON R/A PT TOLERATING BLOOD TRANSFUSION WELL; RBC @100ML/HR. NO S/SX OF ADVERSE REACTIONS SUCH N/V/D, SOB, FEVER, CHILLS, PAIN. WILL CONTINUE TO MONITOR.
--- NOTE | 2022-01-25 01:30 | NUR ---
RN NOTES RECEIVED ER ADMISSION REPORT FROM [facility]. ALL PERTINENT ADMISSION INFO REGARDING PT NOTED. WILL WAIT FOR PT TO BE TRANSFERRED TO UNIT AND ADDRESS NEEDS ACCORDINGLY. SHAKER OUT MADE AWARE.
--- NOTE | 2022-01-25 01:32 | NUR ---
REPORT GIVEN TO SHUN MCBRIDE RN FOR FAM
--- NOTE | 2022-01-25 01:50 | NUR ---
RN NOTES RECEIVED PT FROM ER VIA GURNEY ACCOMPANIED BY 2 ER STAFF AND TRANSFERRED TO BED VIA 2-3 PERSON ASSIST. PT IS A/OX2-3; ON ROOM AIR, IN NO ACUTE RESPIRATORY DISTRESS BUT WITH NOTED WHEEZES. RECEIVED WITH ONGOING BLOOD TRANSFUSION STARTED IN ER, MONITORED PER PROTOCOL. COMPREHENSIVE PHYSICAL ASSESSMENT AND PATIENT CARE DONE. CALL LIGHT WITHIN REACH, SAFETY MEASURES AND ISOLATION PRECAUTION IN PLACE, WILL CONTINUE MONITOR AND ASSESS THROUGHOUT THE SHIFT. WILL CARRY OUT MD ORDERS ACCORDINGLY. ELECTRIC MOTOR AND GENERATOR ASSEMBLER MADE AWARE.
--- NOTE | 2022-01-25 01:52 | NUR ---
PT TRANSFERRED TO REED VIA ACLS PROTOCOL WITH RBC. VSS NO A/R NOTED. PT TOLERATED TRANSFER WELL. ABEBE ARTIST AND REPERTOIRE MANAGER AT PT'S BEDSIDE. NOTIFIED JAKE ASH [phone]
[2022-01-25] MEDS ORDERED: HYDROCODONE/APAP 5/325MG TABLET PO PRN (02:00)
[2022-01-25] MEDS ORDERED: ONDANSETRON 4 MG TAB.RAPDIS SL PRN (02:00)
[2022-01-25] MEDS ORDERED: ACETAMINOPHEN 650 MG/SUPP.RECT RC PRN (02:00)
[2022-01-25] MEDS ORDERED: BISACODYL SUPP (10 MG) 10 MG/SUPP.RECT SUPP.RECT RC PRN (02:00)
[2022-01-25] MEDS ORDERED: HYOSCYAMINE SULFATE 0.125 MG TAB.SUBL SL PRN (02:00)
[2022-01-25] MEDS ORDERED: LORAZEPAM 0.5 MG TABLET SL PRN (02:00)
[2022-01-25] MEDS: HYDROCODONE/APAP 5/325MG TABLET PO PRN ×2 (02:50→23:55)
--- NOTE | 2022-01-25 02:58 | NUR ---
RN NOTES ENDED BLOOD TRANSFUSION @0255, VITAL SIGNS REMAINED WNL, NO BLOOD TRANSFUSION REACTION NOTED. WILL CONTINUE TO MONITOR AND ASSESS FOR ANY BLOOD TRANSFUSION REACTION POST PROCEDURE. ACQUISITIONS EDITOR MADE AWARE.
--- NOTE | 2022-01-25 04:15 | NUR ---
RN NOTES SECURED ORDER FROM LEYLA TIWARI (ADONIS MILLS) MORPHINE 0.5MG PRN ONCE AND FOR A CONTINUOS PULSE OX. GANG TAILER MADE AWARE. WILL CARRY OUT ORDER AND CONTINUE TO MONITOR
[2022-01-25] MEDS ORDERED: MORPHINE SULFATE INJ 2 MG/ML DISP.SYRIN IV PRN (04:30)
--- NOTE | 2022-01-25 06:41 | NUR ---
RN CLOSING NOTE: PATIENT REMAINS IN ROOM IN NO SIGNS OF RESPIRATORY DISTRESS, PATIENT STILL ON ROOM AIR, TOLERATING WELL SATURATING @ >95% SP02. SAFETY MEASURES IMPLEMENTED, BED IN LOWEST POSITION, LOCKED, SIDE RAILS UP, CALL LIGHT WITHIN REACH. ALL NEEDS AND ORDERS ADDRESSED DURING THE SHIFT. IV ACCESS MAINTAINED INTACT, SECURED AND FLUSHING WELL. ALL DUE MEDS GIVEN ORDERED & SCHEDULED ; PATIENT TOLERATED WELL. PATIENT KEPT CLEAN AND COMFORTABLE WITHIN THE SHIFT. PATIENT ENDORSED TO INCOMING SHIFT RN WITH STABLE VITAL SIGN AND FOR CONTINUITY OF CARE.
[2022-01-25 06:48] LABS: CALCIUM, SERUM 10.8 mg/dL (8.5-10.1); CREATININE 3.8 mg/dL (0.6-1.3); MAGNESIUM 2.2 mg/dL (1.8-2.4); PHOSPHORUS 4.9 mg/dL (2.5-4.9)
[2022-01-25 07:20] LABS: BASOPHILS % (AUTO) 0.2 % (0.0-2.0); EOSINOPHILS % (AUTO) 1.1 % (0.0-6.0); HEMATOCRIT 21 % (39-51); HEMOGLOBIN 7.2 g/dL (13.5-17.5); LYMPHOCYTES # (AUTO) 0.5 K/uL (0.8-4.8); LYMPHOCYTES % (AUTO) 15.4 % (20.0-44.0); MEAN CORPUSCULAR HGB CONC 35 g/dl (31.0-36.0); MEAN CORPUSCULAR VOLUME 89 fL (80-96); MONOCYTES # (AUTO) 0.3 K/uL (0.1-1.30); MONOCYTES % (AUTO) 10.5 % (2.0-12.0); NEUTROPHILS # (AUTO) 2.3 K/uL (1.8-8.9); NEUTROPHILS % (AUTO) 72.8 % (43.0-81.0); RED BLOOD CELL COUNT(AUTO) 2.32 MIL/uL (4.5-6.0); WHITE BLOOD COUNT (AUTO) 3.1 K/uL (4.3-11.0)
[2022-01-25 07:22] LABS: THYROID STIMULATING HORMONE 2.08 uIU/mL (0.358-3.74)
--- NOTE | 2022-01-25 07:30 | NUR ---
Received a call from laboratory spoke to Elvin, regarding patients Platelet level. Patient seen comfortably lying in bed, no apparent distress noted, no s/s of bleeding, no unusual bleeding noted, hospitalist made aware and acknowledged situation, will continue to monitor closely for any changes. I
[2022-01-25 07:32] LABS: PLATELET COUNT (AUTO) 29 K/uL (150-450)
--- NOTE | 2022-01-25 07:35 | NUR ---
RN OPENING NOTES Patient seen comfortably lying in bed, breathing even and unlabored, no SOB, no apparent distress noted, denies any pain or discomfort at this time, no grimacing. Call light left within reach, safety precautions in place, brakes locked, side rails up X 2, will monitor closely for any changes.
[2022-01-25] MEDS: FUROSEMIDE 20 MG/2 ML VIAL IV SCH (08:29)
[2022-01-25] MEDS: GABAPENTIN 300 MG CAPSULE PO SCH ×2 (08:30→17:13)
[2022-01-25] MEDS: DOCUSATE SODIUM 250 MG CAPSULE PO SCH ×2 (08:30→17:13)
[2022-01-25] MEDS: DOXYCYCLINE HYCLATE (100 MG) 100 MG TABLET PO SCH ×2 (08:30→17:18)
[2022-01-25] MEDS: PANTOPRAZOLE 40 MG TABLET.DR PO SCH (08:30)
[2022-01-25] MEDS: DAKINS QUARTER STRENGTH (0.125%) 480 ML BOTTLE TOP SCH (08:31)
[2022-01-25] MEDS ORDERED: DIVALPROEX SODIUM 250 MG TABLET.DR PO SCH (09:00)
[2022-01-25] MEDS ORDERED: LEVOFLOXACIN (250MG) 250 MG TABLET PO ONE (09:00)
[2022-01-25] MEDS ORDERED: risperiDONE 1 MG TABLET PO SCH (09:00)
--- NOTE | 2022-01-25 10:08 | NUR ---
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 PT IS CACHECTIC. DR MARIANA OHARA NOTIFIED OF SURGICAL CONSULT REQUEST. RECOMMENDATIONS MADE FOR SKIN PROTECTION AND WOUND CARE. DISCUSSED WITH NURSING STAFF. [facility] IN AGREEMENT WITH PLAN OF CARE. Addendum: 01/25/22 at 1009 by CAROLYN ANDRADE WNRICHELLEU Amended: Links added. Addendum: 01/25/22 at 1011 by CAROLYN ANDRADE WNRICHELLEU DIETARY CONSULT IN PLACE.
[2022-01-25] MEDS: oxyCODONE IR immediate release 5 MG PO PRN ×2 (11:39→17:14)
--- NOTE | 2022-01-25 11:50 | NUR ---
Patient has an order for excisional debridement of sacral and right ischium wound, [facility] provided consent for the procedure obtained, patient signed consent forms and filed in chart.
[2022-01-25] MEDS ORDERED: ACETAMINOPHEN 325 MG TABLET PO ONE (12:30)
[2022-01-25] MEDS ORDERED: diphenhydrAMINE HCL 50 MG/ML VIAL IV ONE (12:30)
[2022-01-25] MEDS ORDERED: Folic acid 1 MG in IV D5W 50 ML IV SCH (13:00)
[2022-01-25] MEDS: ENSURE ENLIVE 237 ML LIQUID (VANILLA) PO SCH ×2 (13:03→17:13)
[2022-01-25] MEDS: ALBUTEROL FS 2.5 MG/3 ML VIAL.NEB NEB SCH ×2 (15:02→20:32)
[2022-01-25] MEDS: IV D5W 1,000 ML IV PRN (15:50)
--- NOTE | 2022-01-25 18:26 | NUR ---
RN CLOSING NOTES Patient lying in bed, no shortness of breath, respirations even and unlabored, remained afebrile during shift, no bleeding noted, no unusual bruising, no hematuria, no blood in stool, no bleeding gums. All due medications given per MD order, tolerating well. Pain medication given per MD order as needed when non pharmacological measures ineffective, noted with help. Patient S/P excisional debridement of sacrum and right ischium wound, no excessive bleeding noted, no unusual odor noted on wounds, no unusual drainage, patient tolerated procedure well. Patient also S/ P blood transfusion today, tolerated well, remained afebrile, no chills, no rashes, no s/s of hypervolemia noted. Kept clean and dry, call light left within reach, all needs anticipated, aspiration precautions observed at all times, kept head of bed elevated, frequent turning and repositioning done, safety precautions in place, frequent visual checks rendered, brakes locked, side rails up X 2, will endorse to next shift for continuity of care.
--- NOTE | 2022-01-25 19:00 | NUR ---
RN NOTE RECEIVED PATIENT IN BED, AO X 3-4, IN NO ACUTE DISTRESS AT THIS TIME. RESPIRATIONS UNLABORED, SATURATION AT 95% ON ROOM AIR, SR ON THE MONITOR, HR IS 96. PATIENT WITH PRODUCTIVE COUGH, ABLE TO COUGH OUT SECRETIONS. NOTED IV SITE AT RFA 20G, PATENT AND FLUSHING WELL, NO S/S OF INFECTION OR INFILTRATION. SUÁREZ CATHETER CONNECTED TO URINE BAG IN PLACE, DRAINING TO A CLEAR, YELLOW OUTPUT. SAFETY MEASURES IMPLEMENTED. PATIENT BED ALARM IS ON. HEAD OF BED ELEVATED. BED IS LOCKED, IN LOWEST POSITION AND SIDE RAILS UP. CALL LIGHT WITHIN REACH OF THE PATIENT. WILL CONTINUE TO MONITOR AND REASSESS FOR ANY CHANGES.
[2022-01-26] VITALS: BP 106/60
[2022-01-26] MEDS: oxyCODONE IR immediate release 5 MG PO PRN ×3 (01:19→15:02)
[2022-01-26] MEDS: ALBUTEROL FS 2.5 MG/3 ML VIAL.NEB NEB SCH ×4 (02:02→19:57)
[2022-01-26 04:00] VITALS: BP 124/70
[2022-01-26] MEDS: HYDROCODONE/APAP 5/325MG TABLET PO PRN ×5 (04:23→21:47)
[2022-01-26 07:09] LABS: BASOPHILS % (AUTO) 0.3 % (0.0-2.0); EOSINOPHILS % (AUTO) 1.9 % (0.0-6.0); HEMATOCRIT 24 % (39-51); HEMOGLOBIN 8.1 g/dL (13.5-17.5); LYMPHOCYTES # (AUTO) 0.3 K/uL (0.8-4.8); LYMPHOCYTES % (AUTO) 20.3 % (20.0-44.0); MEAN CORPUSCULAR HGB CONC 34 g/dl (31.0-36.0); MEAN CORPUSCULAR VOLUME 90 fL (80-96); MONOCYTES # (AUTO) 0.2 K/uL (0.1-1.30); MONOCYTES % (AUTO) 10.3 % (2.0-12.0); NEUTROPHILS # (AUTO) 1.1 K/uL (1.8-8.9); NEUTROPHILS % (AUTO) 67.2 % (43.0-81.0); RED BLOOD CELL COUNT(AUTO) 2.66 MIL/uL (4.5-6.0)
[2022-01-26 07:12] LABS: CALCIUM, SERUM 10.4 mg/dL (8.5-10.1); CREATININE 3.5 mg/dL (0.6-1.3)
[2022-01-26 07:29] LABS: PLATELET COUNT (AUTO) 24 K/uL (150-450)
--- NOTE | 2022-01-26 07:30 | NUR ---
RN OPENING NOTE RECEIVED PATIENT IN BED, AO X 3-4, IN NO ACUTE DISTRESS AT THIS TIME. RESPIRATIONS UNLABORED, SATURATION AT >95% ON ROOM AIR, SR ON THE MONITOR, HR IS 96. NOTED IV SITE AT RFA 20G, PATENT AND FLUSHING WELL RUNNING D5W@50ML/HR. NO S/S OF INFECTION OR INFILTRATION. SUÁREZ CATHETER CONNECTED TO URINE BAG IN PLACE, DRAINING TO A CLEAR, YELLOW OUTPUT. SAFETY MEASURES IMPLEMENTED. PATIENT BED ALARM IS ON. HEAD OF BED ELEVATED. BED IS LOCKED, IN LOWEST POSITION AND SIDE RAILS UP. CALL LIGHT WITHIN REACH OF THE PATIENT. WILL CONTINUE TO MONITOR.
[2022-01-26 07:32] LABS: WHITE BLOOD COUNT (AUTO) 1.7 K/uL (4.3-11.0)
[2022-01-26 08:00] VITALS: BP 107/58
[2022-01-26 08:19] LABS: BAND % (MANUAL) 5 % (0.0-5.0); LYMPHOCYTES % (MANUAL) 31 % (16-48); MONOCYTES % (MANUAL) 11 % (0-11.0); NEUTROPHILS % (MANUAL) 53 (42-76)
[2022-01-26] MEDS: DOCUSATE SODIUM 250 MG CAPSULE PO SCH ×2 (08:35→16:35)
[2022-01-26] MEDS: ENSURE ENLIVE 237 ML LIQUID (VANILLA) PO SCH ×3 (08:35→16:35)
[2022-01-26] MEDS: PANTOPRAZOLE 40 MG TABLET.DR PO SCH (08:35)
[2022-01-26] MEDS: FUROSEMIDE 20 MG/2 ML VIAL IV SCH (08:35)
[2022-01-26] MEDS: DOXYCYCLINE HYCLATE (100 MG) 100 MG TABLET PO SCH ×2 (08:35→16:35)
[2022-01-26] MEDS: GABAPENTIN 300 MG CAPSULE PO SCH ×2 (08:35→16:35)
[2022-01-26] MEDS: DAKINS QUARTER STRENGTH (0.125%) 480 ML BOTTLE TOP SCH (08:47)
--- NOTE | 2022-01-26 08:48 | NUR ---
RN NOTE S/P DEBRIDEMENT ON SACRUM. DAKINS NOT ADMINISTERED. AWAITING POST SURGICAL EVALUATION.
[2022-01-26] MEDS: FOLIC ACID 1 MG TABLET PO SCH (09:48)
[2022-01-26 12:00] VITALS: BP 115/61
[2022-01-26] MEDS: IV D5/ 0.9% NACL 1,000 ML IV PRN (13:21)
[2022-01-26 16:00] VITALS: BP 117/65
[2022-01-26 18:15] LABS: D-DIMER 1.34 mg/L(FEU (0.17-0.50)
--- NOTE | 2022-01-26 18:42 | NUR ---
RN CLOSING NOTE PATIENT REMAINED STABLE THROUGHOUT SHIFT. PATIENT IS RESTING AND EASILY AROUSABLE. AO X 3-4, IN NO ACUTE DISTRESS AT THIS TIME. RESPIRATIONS UNLABORED, SATURATION AT >95% ON ROOM AIR, SR ON THE MONITOR, HR IS 97. NOTED IV SITE AT RFA 20G, PATENT AND FLUSHING WELL RUNNING D5NS@50ML/HR. NO S/S OF INFECTION OR INFILTRATION. SUÁREZ CATHETER CONNECTED TO URINE BAG IN PLACE, DRAINING TO A CLEAR, YELLOW OUTPUT. ALL NEEDS MET AND MEDS ADMINISTERED PER MD ORDER DURING SHIFT. SAFETY MEASURES IMPLEMENTED. PATIENT BED ALARM IS ON. HEAD OF BED ELEVATED. BED IS LOCKED, IN LOWEST POSITION AND SIDE RAILS UP. CALL LIGHT WITHIN REACH OF THE PATIENT. WILL ENDORSE TO SUBSTANCE ABUSE CLINICIAN RN.
--- NOTE | 2022-01-26 19:35 | NUR ---
RN NOTES RECEIVED PATIENT AWAKE ON BED, A/OX2-3, SR ON TELE MONITOR HR-95, F/C DRAINING CLEAR YELLOW URINE, DENIES PAIN, NO SOB, CALL LIGHT WITHIN [id number], WILL CONTINUE TO MONITOR
[2022-01-26 20:00] VITALS: BP 123/58
--- NOTE | 2022-01-26 21:45 | NUR ---
RN NOTES COMPLAINED OF BACK PAIN- NORCO 1 TAB PO GIVEN ORDERED, V/S STABLE
[2022-01-26] MEDS: ZOLPIDEM TARTRATE 5 MG TABLET PO PRN (23:15)
--- NOTE | 2022-01-26 23:23 | NUR ---
RN NOTES PATIENT ASKED FOR SLEEPING PILLS- AMBIEN 10 MG PO GIVEN ORDERED, V/S STABLE
[2022-01-27] VITALS: BP 122/65
[2022-01-27] MEDS: oxyCODONE IR immediate release 5 MG PO PRN ×5 (01:02→22:54)
--- NOTE | 2022-01-27 01:02 | NUR ---
RN NOTES COMPLAINED OF GENERALIZED PAIN- OXY IR 30MG PO GIVEN ORDERED, V/S STABLE
[2022-01-27] MEDS: ALBUTEROL FS 2.5 MG/3 ML VIAL.NEB NEB SCH ×4 (01:48→20:40)
[2022-01-27 04:00] VITALS: BP 108/60
[2022-01-27] MEDS: IV D5/ 0.9% NACL 1,000 ML IV PRN (06:21)
[2022-01-27] MEDS: HYDROCODONE/APAP 5/325MG TABLET PO PRN ×4 (06:28→19:34)
--- NOTE | 2022-01-27 06:32 | NUR ---
RN NOTES MORNING CARE RENDERED, NO SOB [id number], PT. NEEDS ATTENDED
--- NOTE | 2022-01-27 06:32 | NUR ---
RN NOTES COMPLAINED OF GENERALIZED PAIN-NORCO 1 TAB PO GIVEN ORDERED, V/S STABLE
--- NOTE | 2022-01-27 07:30 | NUR ---
RN OPENING NOTE RECEIVED PATIENT IN BED, AO X 3-4, IN NO ACUTE DISTRESS AT THIS TIME. RESPIRATIONS UNLABORED, SATURATION AT >95% ON ROOM AIR, SR ON THE MONITOR, HR IS 96. NOTED IV SITE AT RFA 20G, PATENT AND FLUSHING WELL RUNNING D5NS@50ML/HR. NO S/S OF INFECTION OR INFILTRATION. SUÁREZ CATHETER CONNECTED TO URINE BAG IN PLACE, DRAINING TO A CLEAR, YELLOW OUTPUT. SAFETY MEASURES IMPLEMENTED. PATIENT BED ALARM IS ON. HEAD OF BED ELEVATED. BED IS LOCKED, IN LOWEST POSITION AND SIDE RAILS UP. CALL LIGHT WITHIN REACH OF THE PATIENT. WILL CONTINUE TO MONITOR.
[2022-01-27 07:44] LABS: BASOPHILS % (AUTO) 0.3 % (0.0-2.0); EOSINOPHILS % (AUTO) 1.2 % (0.0-6.0); HEMATOCRIT 26 % (39-51); HEMOGLOBIN 8.6 g/dL (13.5-17.5); LYMPHOCYTES # (AUTO) 0.5 K/uL (0.8-4.8); LYMPHOCYTES % (AUTO) 24.4 % (20.0-44.0); MEAN CORPUSCULAR HGB CONC 33 g/dl (31.0-36.0); MEAN CORPUSCULAR VOLUME 91 fL (80-96); MONOCYTES # (AUTO) 0.3 K/uL (0.1-1.30); MONOCYTES % (AUTO) 15.8 % (2.0-12.0); NEUTROPHILS # (AUTO) 1.1 K/uL (1.8-8.9); NEUTROPHILS % (AUTO) 58.3 % (43.0-81.0); RED BLOOD CELL COUNT(AUTO) 2.85 MIL/uL (4.5-6.0)
[2022-01-27 07:48] LABS: PLATELET COUNT (AUTO) 24 K/uL (150-450); WHITE BLOOD COUNT (AUTO) 1.9 K/uL (4.3-11.0)
[2022-01-27 08:00] VITALS: BP 107/61
[2022-01-27 08:21] LABS: CALCIUM, SERUM 10.1 mg/dL (8.5-10.1); CREATININE 3.2 mg/dL (0.6-1.3); POTASSIUM 4.2 mmol/L (3.5-5.1)
[2022-01-27] MEDS: DAKINS QUARTER STRENGTH (0.125%) 480 ML BOTTLE TOP SCH (09:00)
[2022-01-27] MEDS: DOXYCYCLINE HYCLATE (100 MG) 100 MG TABLET PO SCH ×2 (09:13→16:22)
[2022-01-27] MEDS: LEVOFLOXACIN (250MG) 250 MG TABLET PO SCH (09:13)
[2022-01-27] MEDS: DOCUSATE SODIUM 250 MG CAPSULE PO SCH ×2 (09:13→16:21)
[2022-01-27] MEDS: FOLIC ACID 1 MG TABLET PO SCH (09:14)
[2022-01-27] MEDS: GABAPENTIN 300 MG CAPSULE PO SCH ×2 (09:14→16:22)
[2022-01-27] MEDS: ENSURE ENLIVE 237 ML LIQUID (VANILLA) PO SCH ×3 (09:15→16:22)
[2022-01-27] MEDS: PANTOPRAZOLE 40 MG TABLET.DR PO SCH (09:16)
[2022-01-27 11:30] LABS: EOSINOPHILS % (MANUAL) 2 % (0-4); LYMPHOCYTES % (MANUAL) 27 % (16-48); MONOCYTES % (MANUAL) 17 % (0-11.0); NEUTROPHILS % (MANUAL) 54 (42-76)
[2022-01-27 12:00] VITALS: BP 110/66
[2022-01-27 16:00] VITALS: BP 141/83
--- NOTE | 2022-01-27 18:44 | NUR ---
RN CLOSING NOTE PATIENT REMAINED STABLE THROUGHOUT SHIFT. PATIENT RESTING IN BED AO X 3-4, IN NO ACUTE DISTRESS AT THIS TIME. RESPIRATIONS UNLABORED, SATURATION AT >95% ON ROOM AIR. NOTED IV SITE AT RFA 20G, PATENT AND FLUSHING WELL RUNNING D5NS@50ML/HR. NO S/S OF INFECTION OR INFILTRATION. SUÁREZ CATHETER CONNECTED TO URINE BAG IN PLACE, DRAINING TO A CLEAR, YELLOW OUTPUT. SAFETY MEASURES IMPLEMENTED. PATIENT BED ALARM IS ON. HEAD OF BED ELEVATED. BED IS LOCKED, IN LOWEST POSITION AND SIDE RAILS UP. CALL LIGHT WITHIN REACH OF THE PATIENT. WILL ENDORSE TO LINEN MANAGER RN.
--- NOTE | 2022-01-27 19:15 | NUR ---
RN OPENING NOTES RECEIVED PATIENT ON BED, AWAKE, A/O X 3 ABLE TO MAKE NEEDS KNOWN , RESPIRATORY EVEN AND UNLABORED, NO SOB NOTED, NOT IN DISTRESS. REMAIN AFEBRILE. ON ROOM AIR SATING AT 97%. NOTED WITH RIGHT FOREARM PERIPHERAL LINE #20 INTACT, PATENT AND FLUSHED WITH NS. NO INFILTRATION NOTED AT SITE. RIGHT CHEST WALL CATHERINE CATH, NO BLEEDING NOTED. SUÁREZ CATHETER IN PLACED AND DRAINING WELL BY GRAVITY. ALL SAFETY MEASURE PROVIDED, BED ON LOWEST POSITION, LOCKED. CONTINUE TO MONITOR.
[2022-01-27 20:00] VITALS: BP 155/75
[2022-01-27] MEDS: ZOLPIDEM TARTRATE 5 MG TABLET PO PRN (23:30)
[2022-01-28] VITALS (10 sets, daily range): BP systolic 93–118; BP diastolic 51–68
[2022-01-28] MEDS: ALBUTEROL FS 2.5 MG/3 ML VIAL.NEB NEB SCH ×4 (01:30→20:57)
[2022-01-28] MEDS: HYDROCODONE/APAP 5/325MG TABLET PO PRN ×4 (02:42→17:41)
[2022-01-28] MEDS: IV D5/ 0.9% NACL 1,000 ML IV PRN (03:10)
[2022-01-28 06:00] LABS: BASOPHILS % (AUTO) 0.4 % (0.0-2.0); EOSINOPHILS % (AUTO) 1.7 % (0.0-6.0); HEMATOCRIT 23 % (39-51); HEMOGLOBIN 7.8 g/dL (13.5-17.5); LYMPHOCYTES # (AUTO) 0.5 K/uL (0.8-4.8); LYMPHOCYTES % (AUTO) 22.9 % (20.0-44.0); MEAN CORPUSCULAR HGB CONC 34 g/dl (31.0-36.0); MEAN CORPUSCULAR VOLUME 90 fL (80-96); MONOCYTES # (AUTO) 0.3 K/uL (0.1-1.30); MONOCYTES % (AUTO) 16.5 % (2.0-12.0); NEUTROPHILS # (AUTO) 1.2 K/uL (1.8-8.9); NEUTROPHILS % (AUTO) 58.5 % (43.0-81.0); RED BLOOD CELL COUNT(AUTO) 2.53 MIL/uL (4.5-6.0)
[2022-01-28] MEDS: oxyCODONE IR immediate release 5 MG PO PRN ×4 (06:22→20:21)
[2022-01-28 06:34] LABS: PLATELET COUNT (AUTO) 21 K/uL (150-450)
--- NOTE | 2022-01-28 06:39 | NUR ---
RN NOTES RECEIVED CRITICAL LAB RESULT FROM LABS, PLATELETS- 21, PREVIOUSLY 24. WITH TRANSFUSION PARAMETER PER ONCOLOGY: IF Hgb <8, THEN TRANFUSE 1 UNIT PRBC, IF PLATELETS <10 THEN TRANSFUSE PLATELETS. CONTINUE TO MONITOR. ENDORSED TO NEXT SHIFT.
[2022-01-28 07:09] LABS: CALCIUM, SERUM 9.5 mg/dL (8.5-10.1); CREATININE 3.1 mg/dL (0.6-1.3); PHOSPHORUS 4.4 mg/dL (2.5-4.9); POTASSIUM 4.3 mmol/L (3.5-5.1)
--- NOTE | 2022-01-28 07:14 | NUR ---
RN CLOSING NOTES NO SIGNIFICANT CHANGES THROUGH OUT THE SHIFT, RESPIRATORY EVEN AND UNLABORED, NO SOB NOTED, NOT IN DISTRESS. REMAIN AFEBRILE. ON ROOM AIR SATING AT 97. DRESSING CHANGES ON COCCYX AND RIGHT GLUTEAL FOLD PRESSURE ULCER, PROCEDURE TOLERATED WELL. .SUÁREZ CATHETER IN PLACED AND DRAINING WELL BY GRAVITY. ALL DUE MEDS GIVEN ORDERED. ALL SAFETY MEASURE PROVIDED, BED ON LOWEST POSITION, LOCKED. BED ALARM ARMED. ENDORSED TO NEXT SHIFT.
--- NOTE | 2022-01-28 07:46 | NUR ---
RN OPENING NOTES RECEIVED PATIENT ON BED, AWAKE, A/O X 3 ABLE TO MAKE NEEDS KNOWN , PATIENT HAS NO S/S OF DISTRESS, NO SOB, BREATHING EXPANSION IS SYMMETRICAL. REMAIN AFEBRILE. ON ROOM AIR SATING AT 97%. NOTED WITH RIGHT FOREARM PERIPHERAL LINE #20 INTACT, PATENT AND FLUSHED WITH NS. NO INFILTRATION NOTED AT SITE. RIGHT CHEST WALL PERMA CATH RUNNING D5NS @50CC/HR, NO BLEEDING NOTED. SUÁREZ CATHETER IN PLACED AND DRAINING WELL BY GRAVITY. ALL SAFETY MEASURE PROVIDED, BED IN LOWEST POSITION, LOCKED. CONTINUE TO MONITOR.
[2022-01-28] MEDS: DOCUSATE SODIUM 250 MG CAPSULE PO SCH ×2 (08:48→17:41)
[2022-01-28] MEDS: DOXYCYCLINE HYCLATE (100 MG) 100 MG TABLET PO SCH ×2 (08:48→17:41)
[2022-01-28] MEDS: FOLIC ACID 1 MG TABLET PO SCH (08:49)
[2022-01-28] MEDS: GABAPENTIN 300 MG CAPSULE PO SCH ×2 (08:49→17:41)
[2022-01-28] MEDS: PANTOPRAZOLE 40 MG TABLET.DR PO SCH (08:50)
[2022-01-28] MEDS: ENSURE ENLIVE 237 ML LIQUID (VANILLA) PO SCH ×3 (08:51→17:41)
[2022-01-28] MEDS: DAKINS QUARTER STRENGTH (0.125%) 480 ML BOTTLE TOP SCH (08:52)
[2022-01-28] MEDS ORDERED: ACETAMINOPHEN 325 MG TABLET PO PRN (11:00)
[2022-01-28] MEDS ORDERED: diphenhydrAMINE HCL 50 MG/ML VIAL IV PRN (11:00)
[2022-01-28 11:33] LABS: BAND % (MANUAL) 6 % (0.0-5.0); LYMPHOCYTES % (MANUAL) 26 % (16-48); METAMYELOCYTES % 2 % (0-0); MONOCYTES % (MANUAL) 10 % (0-11.0); MYELOCYTES % 2 % (0-0); NEUTROPHILS % (MANUAL) 54 (42-76)
--- NOTE | 2022-01-28 19:40 | NUR ---
RN OPENING NOTES RECEIVED PATIENT IN BED, AWAKE, A/O X 3, VERBALLY RESPONSIVE. ON ROOM AIR AND PT TOLERATED WELL. NO SOB NOTED. BREATHING EVEN AND UNLABORED. IV ACCESS ON RFA#20G INTACT AND PATENT. NO S/S OF INFILTRATIONS. RUNNING D5NS 50CC/HR. RIGHT CHEST WALL PORT CATH INTACT AND PATENT. NO BLEEDING NOTED. NO C/O PAIN OR DISCOMFORT. AT THIS MOMENT. SUÁREZ CATHETER IN PLACED AND DRAINING WELL. ALL SAFETY MEASURE IN PLACE. BED IN LOWEST POSITION AND LOCKED. BOTH SIDE RAILS UP X2, PLACE CALL LIGHT WITH IN REACH. WILL CONTINUE TO MONITOR.
--- NOTE | 2022-01-28 20:06 | NUR ---
RN NOTES: DR. GILL VISITED THE PT. PT C/O NOT HAVING BOWEL MOVEMENT FOR SEVERAL DAYS. MADE THE FOR LACTULOSE 15ML Q 4 HOUS PRN FOR CONSTIPATION. ORDER NOTED AND CARRIED OUT.
[2022-01-28] MEDS ORDERED: LACTULOSE 10 G/15 ML UDC (PYXIS) PO PRN (20:30)
--- NOTE | 2022-01-28 20:35 | NUR ---
RN NOTES: PT C/O SEVERE PAIN 9/10 PAIN SCALE ON SACRUM AREA. OXY IR 30MG GIVEN PRN ORDERED. PT TOLERATED WELL. WILL CONTINUE TO MONITOR.
[2022-01-28] MEDS: ZOLPIDEM TARTRATE 5 MG TABLET PO PRN (21:37)
--- NOTE | 2022-01-28 21:38 | NUR ---
RN NOTES: PT C/O UNABLE TO SLEEP. AMBIEN GIVEN PRN ORDERED. PT TOLERATED WELL. WILL CONTINUE TO MONITOR
--- NOTE | 2022-01-28 21:50 | NUR ---
RN NOTES: PT'S BLOOD TRANSFUSION COMPLETED AT 2140. PT TOLERATED WELL. NO ADVERSE REACTIONS. V/S STABLE. AFEBRILE. WILL CONTINUE TO MONITOR.
[2022-01-28] MEDS: LACTULOSE 10 G/15 ML UDC (PYXIS) PO PRN (22:03)
[2022-01-29] MEDS: HYDROCODONE/APAP 5/325MG TABLET PO PRN ×3 (01:29→13:43)
[2022-01-29] MEDS: ALBUTEROL FS 2.5 MG/3 ML VIAL.NEB NEB SCH ×3 (01:30→13:30)
--- NOTE | 2022-01-29 01:33 | NUR ---
RN NOTES: PT STILL C/O PAIN 6/7 PAIN SCALE ON SACRAL AREA. NORCO 5/325 MG TAB GIVEN PRN ORDER. PT TOLERATED WELL. WILL CONTINUE TO MONITOR
[2022-01-29] MEDS: IV D5/ 0.9% NACL 1,000 ML IV PRN (03:20)
[2022-01-29 04:00] VITALS: BP 111/57
--- NOTE | 2022-01-29 06:43 | NUR ---
RN CLOSING NOTES PATIENT IN BED, AWAKE, A/O X 3, VERBALLY RESPONSIVE. ON ROOM AIR AND PT TOLERATED WELL. NO SOB NOTED. BREATHING EVEN AND UNLABORED. ON ROOM AIR. O2 SAT 96% AND PT TOLERATED WELL. IV ACCESS ON RFA#20G INTACT AND PATENT. NO S/S OF INFILTRATIONS. RUNNING D5NS 50CC/HR. RIGHT CHEST WALL PORT CATH INTACT AND PATENT. NO BLEEDING NOTED. NO C/O PAIN OR DISCOMFORT. AT THIS MOMENT. SUÁREZ CATHETER IN PLACED AND DRAINING WELL. ALL DUE MEDS GIVEN ORDERED. ALL SAFETY MEASURE IN PLACE. BED IN LOWEST POSITION AND LOCKED. BOTH SIDE RAILS UP X2, PLACE CALL LIGHT WITH IN REACH. WILL ENDORSE TO MORNING SHIFT NURSE.
--- NOTE | 2022-01-29 07:30 | NUR ---
RN MS NOTES PT IN BED, AWAKE, ALERT AND ORIENTED, NO COMPLAINT AT THIS TIME, RESPIRATIONS NORMAL, CALL LIGHT WITHIN REACH, KEPT WARM AND COMFORTABLE IN BED, IV FLUIDS INFUSING.
[2022-01-29 07:35] LABS: CALCIUM, SERUM 9.8 mg/dL (8.5-10.1); CREATININE 2.7 mg/dL (0.6-1.3); POTASSIUM 4.3 mmol/L (3.5-5.1)
[2022-01-29 07:38] LABS: BASOPHILS % (AUTO) 0.4 % (0.0-2.0); EOSINOPHILS % (AUTO) 1.4 % (0.0-6.0); HEMATOCRIT 27 % (39-51); HEMOGLOBIN 8.9 g/dL (13.5-17.5); LYMPHOCYTES # (AUTO) 0.6 K/uL (0.8-4.8); LYMPHOCYTES % (AUTO) 25.5 % (20.0-44.0); MEAN CORPUSCULAR HGB CONC 34 g/dl (31.0-36.0); MEAN CORPUSCULAR VOLUME 90 fL (80-96); MONOCYTES # (AUTO) 0.4 K/uL (0.1-1.30); MONOCYTES % (AUTO) 14.4 % (2.0-12.0); NEUTROPHILS # (AUTO) 1.5 K/uL (1.8-8.9); NEUTROPHILS % (AUTO) 58.3 % (43.0-81.0); RED BLOOD CELL COUNT(AUTO) 2.95 MIL/uL (4.5-6.0); WHITE BLOOD COUNT (AUTO) 2.5 K/uL (4.3-11.0)
[2022-01-29 08:00] VITALS: BP 113/65
[2022-01-29 08:06] LABS: PLATELET COUNT (AUTO) 22 K/uL (150-450)
[2022-01-29] MEDS: FOLIC ACID 1 MG TABLET PO SCH (08:12)
[2022-01-29] MEDS: GABAPENTIN 300 MG CAPSULE PO SCH (08:12)
[2022-01-29] MEDS: PANTOPRAZOLE 40 MG TABLET.DR PO SCH (08:12)
[2022-01-29] MEDS: DOXYCYCLINE HYCLATE (100 MG) 100 MG TABLET PO SCH (08:12)
[2022-01-29] MEDS: LEVOFLOXACIN (250MG) 250 MG TABLET PO SCH (08:12)
[2022-01-29] MEDS: DOCUSATE SODIUM 250 MG CAPSULE PO SCH (08:12)
[2022-01-29] MEDS: ENSURE ENLIVE 237 ML LIQUID (VANILLA) PO SCH ×2 (08:14→11:22)
[2022-01-29] MEDS: DAKINS QUARTER STRENGTH (0.125%) 480 ML BOTTLE TOP SCH (08:14)
[2022-01-29 09:10] LABS: LYMPHOCYTES % (MANUAL) 28 % (16-48); NEUTROPHILS % (MANUAL) 51 (42-76)
[2022-01-29 09:11] LABS: MONOCYTES % (MANUAL) 19 % (0-11.0); MYELOCYTES % 2 % (0-0)
[2022-01-29] MEDS: LACTULOSE 10 G/15 ML UDC (PYXIS) PO PRN (11:22)
[2022-01-29] MEDS: oxyCODONE IR immediate release 5 MG PO PRN (11:22)
[2022-01-29] MEDS ORDERED: Folic Acid PO (11:57)
[2022-01-29] MEDS ORDERED: PANT40TA49 PO (11:57)
--- NOTE | 2022-01-29 13:00 | NUR ---
RN MS NOTES PT IN BED, HAD 1 EPISODE OF LARGE BM, WITH NORMAL COLOR, CONSISTENCY AND ODOR, PT VERBALIZED RELIEF.
--- NOTE | 2022-01-29 16:02 | NUR ---
RN MS NOTES PT IN BED, AWAKE, ALERT AND ORIENTED, PAIN MEDS GIVEN ORDERED, AT BEDSIDE, PT SEEN BY DR. STEWART AND DR. FAM, DISCHARGE ORDER GIVEN, DISCHARGE AND MEDICATION INSTRUCTIONS PROVIDED TO PT AND , VEBALIZED UNDERSTANDING, REPORT GIVEN TO [facility], BELONGINGS ACCOUNTED FOR, WOUND TREATMENT AND DRESSING CHANGE DONE, BELONGINGS ACCOUNTED FOR, PICKED UP BY 2 AMBULANCE PERSONNEL, LEFT VIA GUERNEY IN STABLE CONDITION.
== END 2022-01-29 15:54 | DRG 823 ==
LOC: ER 19:26 → TELE1 01-25 00:31 → MEDSG1 01-27 08:07
PROVIDERS: ADMIT Registered Nurse; ATTEND Internal Medicine
PROC: 30233N1 Transfusion of Nonautologous Red Blood Cells into Peripheral Vein, Percutaneous Approach (ICD-10-PCS; principal; 2022-01-24)
PROC: 0KBP0ZZ Excision of Left Hip Muscle, Open Approach (ICD-10-PCS; 2022-01-25)
PROC: 0KBN0ZZ Excision of Right Hip Muscle, Open Approach (ICD-10-PCS; 2022-01-25)
PROC: 0JB90ZZ Excision of Buttock Subcutaneous Tissue and Fascia, Open Approach (ICD-10-PCS; 2022-01-25)
DX: C90.00 Multiple myeloma not having achieved remission (principal); L89.313 Pressure ulcer of right buttock, stage 3; L89.154 Pressure ulcer of sacral region, stage 4; N17.0 Acute kidney failure with tubular necrosis; G92.8 Other toxic encephalopathy; E87.1 Hypo-osmolality and hyponatremia; R64 Cachexia; Z68.1 Body mass index [BMI] 19.9 or less, adult; D68.9 Coagulation defect, unspecified; N18.4 Chronic kidney disease, stage 4 (severe); D61.818 Other pancytopenia; J90 Pleural effusion, not elsewhere classified; B19.20 Unspecified viral hepatitis C without hepatic coma; G40.909 Epilepsy, unspecified, not intractable, without status epilepticus; L89.310 Pressure ulcer of right buttock, unstageable; I12.9 Hypertensive chronic kidney disease with stage 1 through stage 4 chronic kidney disease, or unspecified chronic kidney disease; J44.9 Chronic obstructive pulmonary disease, unspecified; E53.8 Deficiency of other specified B group vitamins; Z91.81 History of falling; D63.0 Anemia in neoplastic disease; E83.52 Hypercalcemia; R62.7 Adult failure to thrive; E83.89 Other disorders of mineral metabolism; F25.1 Schizoaffective disorder, depressive type; Z20.822 Contact with and (suspected) exposure to COVID-19
CPT/HCPCS: 31720; 36415; 71045-TC; 80048-TC; 80053-TC; 80177; 81001; 83735-TC; 84100-TC; 84443-TC; 85025-TC; 85396; 85730-TC; 86850-TC; 87040-TC; 87081-TC; 87086-TC; 94760-TC; 94799-TC; 97116-TC; 97530-TC; A6253; A6403; C9803; G0378; J1200; J1940; J2270; J3490; J7042; J7050; J7060; J7070; P9016

== ENCOUNTER 2022-02-08 19:13 | Emergency (ER) | payer MEDICARE, OTHER ==
[~2022-02-08] VITALS: Ht 182.9 cm; Wt 54.9 kg
[~2022-02-08 19:13] MED LIST changes: -DOXY-326 PO; -FURO10VI IV; +Folic Acid PO; -LEVO500T90 PO; +PANT40TA49 PO
[2022-02-08 19:45] VITALS: BP 122/54
--- NOTE | 2022-02-08 20:17 | NUR ---
PT WILL BE TAKEN BACK TO FACILITY VIA [facility] IN 30 TO 45 MINS.
--- NOTE | 2022-02-08 20:18 | NUR ---
[place] [id number] [phone] SARIKA
--- NOTE | 2022-02-08 21:07 | NUR ---
PT PICKED UP BY [facility]. BEDSIDE REPORT GIVEN TO EMT.
== END 2022-02-08 21:09 ==
LOC: ER 19:16
DX: S50.12XA Contusion of left forearm, initial encounter (principal); R51.9 Headache, unspecified; G40.909 Epilepsy, unspecified, not intractable, without status epilepticus; I10 Essential (primary) hypertension; J44.9 Chronic obstructive pulmonary disease, unspecified; F20.9 Schizophrenia, unspecified; Z98.890 Other specified postprocedural states; Z88.8 Allergy status to other drugs, medicaments and biological substances; Z91.013 Allergy to seafood; Z87.891 Personal history of nicotine dependence; Z79.899 Other long term (current) drug therapy; W18.39XA Other fall on same level, initial encounter; Y93.89 Activity, other specified; Y92.89 Other specified places as the place of occurrence of the external cause; Y99.8 Other external cause status

== ENCOUNTER 2022-02-10 02:05 | Inpatient (IN) | payer MEDICARE, OTHER ==
[~2022-02-10] VITALS: Ht 182.9 cm; Wt 56.2 kg
--- NOTE | 2022-02-10 02:15 | NUR ---
TO ER BED 5. [id number] FROM [facility], C/O MORE ALTERED THAN NORMAL, GENERALIZED WEAKNESS, FEVER. PT IS AOX3. PT FEELS WARM TO THE TOUCH, 101.5 RECTAL TEMP NOTED. CONNECTED TO MONITOR. NOT IN RESPIRATORY DISTRESS. AWAITING MD TRIPP
[2022-02-10] MEDS ORDERED: CEFEPIME 1 GM VIAL ONE (02:28)
[2022-02-10] MEDS ORDERED: ACETAMINOPHEN 650 MG/SUPP.RECT RC ONE ×2 (02:28→02:30)
[2022-02-10] MEDS ORDERED: VANCOMYCIN 1 GM in IV D5W 250 ML IV ONE (02:30)
[2022-02-10] MEDS ORDERED: CEFEPIME 1 GM in IV D5W 50 ML IV ONE (02:30)
[2022-02-10 02:51] LABS: BASOPHILS % (AUTO) 0.5 % (0.0-2.0); EOSINOPHILS % (AUTO) 0.9 % (0.0-6.0); HEMATOCRIT 23 % (39-51); HEMOGLOBIN 7.8 g/dL (13.5-17.5); LYMPHOCYTES # (AUTO) 0.1 K/uL (0.8-4.8); LYMPHOCYTES % (AUTO) 5.8 % (20.0-44.0); MEAN CORPUSCULAR HGB CONC 34 g/dl (31.0-36.0); MEAN CORPUSCULAR VOLUME 91 fL (80-96); MONOCYTES % (AUTO) 1.1 % (2.0-12.0); NEUTROPHILS # (AUTO) 1.3 K/uL (1.8-8.9); NEUTROPHILS % (AUTO) 91.7 % (43.0-81.0); RED BLOOD CELL COUNT(AUTO) 2.55 MIL/uL (4.5-6.0)
--- NOTE | 2022-02-10 02:51 | NUR ---
XRAY AT BEDSIDE
--- NOTE | 2022-02-10 02:55 | NUR ---
COVID ANTIGEN SWAB COLLECTED AND SENT TO LAB
[2022-02-10 03:04] LABS: CALCIUM, SERUM 6.1 mg/dL (8.5-10.1); CARBON DIOXIDE 18 mmol/L (21-32); CHLORIDE 104 mmol/L (98-107); CREATININE 2.5 mg/dL (0.6-1.3); GLUCOSE 116 mg/dL (74-106); POTASSIUM 3.9 mmol/L (3.5-5.1); SODIUM SERUM 130 mmol/L (136-145); UREA NITROGEN, BLOOD 50 mg/dL (7-18)
[2022-02-10 03:07] LABS: OCCULT BLOOD STOOL NEGATIVE (NEGATIVE)
[2022-02-10] MEDS ORDERED: VANCOMYCIN 1 GM VIAL ONE (03:07)
[2022-02-10 03:19] LABS: ALANINE AMINOTRANSFERASE 13 U/L (12-78); ALBUMIN 1.7 g/dL (3.4-5.0); ALKALINE PHOSPHATASE 143 U/L (46-116); ASPARTATE AMINOTRANSFERASE 18 U/L (15-37); BILIRUBIN,DIRECT 0.3 mg/dL (0.0-0.2); BILIRUBIN,TOTAL 0.6 mg/dL (0.2-1.0); TOTAL PROTEIN, SERUM 9.7 g/dL (6.4-8.2)
[2022-02-10 04:12] LABS: WHITE BLOOD COUNT (AUTO) 1.4 K/uL (4.3-11.0)
[2022-02-10 04:13] LABS: PLATELET COUNT (AUTO) 21 K/uL (150-450)
[2022-02-10] MEDS ORDERED: ACETAMINOPHEN 325 MG TABLET PO PRN ×2 (04:30→14:30)
[2022-02-10] MEDS ORDERED: HYOSCYAMINE SULFATE 0.125 MG TAB.SUBL SL PRN (04:30)
[2022-02-10] MEDS ORDERED: LABETALOL 20 MG/4 ML VIAL IV PRN (04:30)
[2022-02-10] MEDS ORDERED: MAG HYDROX/AL HYDROX/SIMETH 30 ML UDC PO PRN (04:30)
[2022-02-10] MEDS ORDERED: Z GUARD REMEDY 4 OZ OINT TP PRN (04:30)
[2022-02-10] MEDS ORDERED: IV NS 0.9% 1,000 ML IV ONE (04:30)
[2022-02-10] MEDS ORDERED: ACETAMINOPHEN 650 MG/SUPP.RECT RC PRN (04:30)
[2022-02-10] MEDS ORDERED: VANCOMYCIN 1 GM in IV D5W 250 ML IV SCH (04:30)
[2022-02-10] MEDS ORDERED: ALBUTEROL SULFATE 8 GM HFA.AER.AD NEB PRN ×2 (04:30→06:23)
[2022-02-10] MEDS ORDERED: ZOLPIDEM TARTRATE 5 MG TABLET PO PRN (04:30)
[2022-02-10] MEDS ORDERED: MAGNESIUM HYDROXIDE 30 ML UDC PO PRN ×2 (04:30→14:30)
--- NOTE | 2022-02-10 04:45 | NUR ---
NON ADMIN ON SECOND BAG OF VANCOMYCIN, PER MD ORDER Q12, FIRST BAG ADMINISTERED 82 MIN AGO
[2022-02-10 04:54] LABS: BASOPHILS % (MANUAL) 1 % (0.0-2.0); MONOCYTES % (MANUAL) 11 % (0-11.0); NEUTROPHILS % (MANUAL) 67 (42-76)
[2022-02-10 04:55] LABS: METAMYELOCYTES % 1 % (0-0); MYELOCYTES % 1 % (0-0)
[2022-02-10 04:56] LABS: LYMPHOCYTES % (MANUAL) 19 % (16-48)
[2022-02-10] MEDS ORDERED: MEROPENEM 1 G in IV NS 0.9% 100 ML IV SCH (05:00)
[2022-02-10] MEDS: MEROPENEM 1 G in IV NS 0.9% 100 ML IV SCH ×2 (06:00→17:26)
[2022-02-10] MEDS: IV NS 0.9% 1,000 ML IV SCH ×2 (06:00→17:29)
--- NOTE | 2022-02-10 06:04 | NUR ---
PT RESTING COMFORTABLY IN BED, WILL CONTINUE TO MONITOR
[2022-02-10] MEDS ORDERED: MEROPENEM 1 G VIAL IV ONE (06:12)
--- NOTE | 2022-02-10 06:15 | NUR ---
LAB AT BEDSIDE FOR AM LABS
[2022-02-10] MEDS ORDERED: GEL100GE TD (07:34)
[2022-02-10] MEDS ORDERED: FENT1PAT5 TD (07:34)
[2022-02-10] MEDS ORDERED: NA P133E RC (07:34)
[2022-02-10] MEDS ORDERED: ASCO-352 PO (07:34)
[2022-02-10] MEDS ORDERED: CRAN425C6 PO (07:34)
[2022-02-10] MEDS ORDERED: MAGN400O6 PO (07:34)
[2022-02-10] MEDS ORDERED: MULT-447 PO (07:34)
[2022-02-10] MEDS ORDERED: ZINC220C6 PO (07:34)
[2022-02-10] MEDS ORDERED: ACET-2605 PO (07:34)
[2022-02-10] MEDS ORDERED: FOLI0.4T6 PO (07:34)
[2022-02-10] MEDS ORDERED: AMIN30LI2 PO (07:34)
[2022-02-10] MEDS ORDERED: ACET-868 PO (07:34)
[2022-02-10] MEDS ORDERED: COLL30OI TP (07:34)
[2022-02-10] MEDS ORDERED: HEPARIN SODIUM, PORCINE 5000 UNITS/1 ML VIAL ONE (07:43)
[2022-02-10] MEDS ORDERED: GABAPENTIN 300 MG CAPSULE ONE (07:44)
[2022-02-10] MEDS ORDERED: PANTOPRAZOLE 40 MG TABLET.DR PO ONE (07:44)
[2022-02-10] MEDS ORDERED: DIVALPROEX SODIUM 250 MG TABLET.DR PO ONE ×2 (07:44→13:05)
[2022-02-10] MEDS ORDERED: DOCUSATE SODIUM 100 MG CAPSULE PO ONE (07:44)
[2022-02-10] MEDS ORDERED: risperiDONE 1 MG TABLET ONE (07:45)
[2022-02-10] MEDS: risperiDONE 0.25 MG TABLET PO SCH ×2 (08:03→17:00)
[2022-02-10] MEDS: DIVALPROEX SODIUM 250 MG TABLET.DR PO SCH ×3 (08:03→17:00)
[2022-02-10] MEDS: GABAPENTIN 300 MG CAPSULE PO SCH ×2 (08:03→21:21)
[2022-02-10] MEDS: PANTOPRAZOLE 40 MG TABLET.DR PO SCH (08:03)
[2022-02-10] MEDS: DOCUSATE SODIUM 250 MG CAPSULE PO SCH ×2 (08:03→17:06)
[2022-02-10] MEDS: HEPARIN SODIUM, PORCINE 5000 UNITS/1 ML VIAL SQ SCH ×2 (08:04→21:25)
[2022-02-10] MEDS ORDERED: ONDANSETRON HCL/PF 4 MG/2 ML VIAL ONE (09:19)
[2022-02-10] MEDS ORDERED: MORPHINE SULFATE INJ 2 MG/ML DISP.SYRIN ONE (09:19)
[2022-02-10] MEDS: DAKINS QUARTER STRENGTH (0.125%) 480 ML BOTTLE TOP SCH (09:22)
[2022-02-10] MEDS: MORPHINE SULFATE INJ 2 MG/ML DISP.SYRIN IV PRN (09:29)
[2022-02-10] MEDS: ONDANSETRON HCL/PF 4 MG/2 ML VIAL IVP PRN (09:29)
--- NOTE | 2022-02-10 11:15 | NUR ---
COVID (PCR) SWAB COLLECTED AND SENT TO THE LAB.
--- NOTE | 2022-02-10 11:17 | NUR ---
109-Tele. Primary RN aware.
--- NOTE | 2022-02-10 11:35 | NUR ---
report given to niez for kelsei
--- NOTE | 2022-02-10 12:39 | NUR ---
SPOKE WITH MEGHAN, NIECE, WHO WANTED UPDATE WHEN PT MOVES TO NEW ROOM
--- NOTE | 2022-02-10 13:14 | NUR ---
PT TRANSPORT TO [facility] WITH ACLS PROTOCOLS IN PLACE. PT WAS TRANSPORTED IN STABLE CONDITION AND WAS HANDED OFF TO HAMILTON CLARK FOR FAM.
--- NOTE | 2022-02-10 13:30 | NUR ---
ADMISSION NOTES RECEIVED PT FROM ER NURSE KENROY. NO SOB, NOT IN DISTRESS, BREATHING EVEN AND UNLABORED. PT IS ON MONITOR HR 101. PT IS ON 3L VIA NC SATING AT 100%. PT IS A/O X3, DENIES CHEST PAIN. IV ACCESS ON R AND L FA 20G WITH NS AT 75MLS/HR. PT ALSO HAS R CHEST PORT CATH. ALL SAFETY MEASURES IN PLACE, BED IN LOWEST LOCKED POSITION, CALL LIGHT WITHIN REACH, SR UP X2 WILL CONTINUE TO MONITOR THROUGHOUT SHIFT.
[2022-02-10] MEDS ORDERED: BISACODYL SUPP (10 MG) 10 MG/SUPP.RECT SUPP.RECT RC PRN (14:30)
[2022-02-10] MEDS ORDERED: ONDANSETRON 4 MG TAB.RAPDIS SL PRN (14:30)
[2022-02-10] MEDS ORDERED: NA PHOS,M-B/NA PHOS,DI-BA 1 EA ENEMA RC PRN (14:30)
[2022-02-10 16:00] VITALS: BP 101/70
[2022-02-10] MEDS: PROSOURCE / PROSTAT (PYXIS) 30 ML UDC PO SCH (17:06)
[2022-02-10] MEDS: oxyCODONE IR immediate release 5 MG PO PRN ×2 (17:12→21:21)
[2022-02-10 17:38] LABS: BILIRUBIN,URINE NEGATIVE (NEGATIVE); COLOR,URINE YELLOW (YELLOW); LEUKOCYTE ESTERASE ,URINE TRACE (NEGATIVE); NITRITE, URINE NEGATIVE (NEGATIVE); PH,URINE 5.5 (5.0-8.0); PROTEIN,URINE 30 mg/dl (NEGATIVE); UGLUCOSE NEGATIVE (NEGATIVE); UROBILINOGEN,URINE 0.2 EU/dL (0.2)
[2022-02-10 17:47] LABS: BACTERIA,URINE RARE /HPF (None Seen); RBC,URINE 21-50 /HPF (0-2); SQUAMOUS EPITHELIAL CELL,UR 0-2 /HPF (None Seen)
[2022-02-10 17:48] LABS: URINE AMORPHOUS URATE Moderate /HPF (None Seen)
--- NOTE | 2022-02-10 18:25 | NUR ---
RN NOTES PUT IN NEW SUÁREZ CATHETER DUE TO PREVIOUS F/C BEING CLOGGED. BLADDER SCAN SHOWED 580 CC.650 ML EXPELLED AFTERWARDS. HEMATURIA PRESENT. PT BP STABLE.
--- NOTE | 2022-02-10 18:44 | NUR ---
RN CLOSING NOTES PT IS RESTING IN BED, NO S/S OF RESP DISTRESS OR SOB. NON LABORED BREATHING. NO C/O PAIN AT THIS TIME. PT IS A/O X 2-3, WITH FAMILY AT BEDSIDE. PT ON 3L NC SATING AT 100%. R AND L FA 20G FLOWING AND PATENT RUNNING NS AT 75 ML/HR. ALL SAFETY MEASURES IN PLACE, BED IN LOWEST LOCKED POSITION, SR UP X 2, CALL LIGHT WITHIN REACH. WILL ENDORSE TO AMMONIA REFRIGERATION WORKER NURSE FOR FAM.
[2022-02-10 20:00] VITALS: BP 111/64
--- NOTE | 2022-02-10 21:21 | NUR ---
RN NOTES, PT C/O OF GENERALIZED PAIN 10/10, FACIAL GRIMACE NOTED, OXYCODONE 30MG ADMINISTERED, WILL CONTINUE TO MONITOR CLOSELY.
[2022-02-11] VITALS (9 sets, daily range): BP systolic 91–110; BP diastolic 50–61
[2022-02-11] MEDS: VANCOMYCIN 1 GM in IV D5W 250 ML IV SCH (04:21)
[2022-02-11] MEDS: MEROPENEM 1 G in IV NS 0.9% 100 ML IV SCH ×2 (05:11→18:45)
[2022-02-11 07:02] LABS: BILIRUBIN,TOTAL 0.3 mg/dL (0.2-1.0); CREATININE 2.5 mg/dL (0.6-1.3); MAGNESIUM 1.7 mg/dL (1.8-2.4); PHOSPHORUS 2.6 mg/dL (2.5-4.9); POTASSIUM 4.3 mmol/L (3.5-5.1); TOTAL PROTEIN, SERUM 8.8 g/dL (6.4-8.2)
[2022-02-11 07:33] LABS: ALBUMIN 1.4 g/dL (3.4-5.0); CALCIUM, SERUM 5.9 mg/dL (8.5-10.1)
--- NOTE | 2022-02-11 07:40 | NUR ---
RN CLOSING NOTES, PATIENT RESTING IN BED, 3LPM VIA NC , NO SOB/ NO SIGNS OF RESPIRATORY DISTRESS, WITH OPTIMAL O2 SAT LEVEL, NO SIGNIFICANT CHANGE IN CONDITION, CALL LIGHT WITHIN REACH, ALL NEEDS PROVIDED, KEPT PT DRY CLEAN, WILL ENDORSE CONTINUITY OF CARE TO ONCOMING NURSE.
--- NOTE | 2022-02-11 07:40 | NUR ---
RN OPENING NOTES PT IS RESTING IN BED, NO S/S OF RESP DISTRESS OR SOB. NON LABORED BREATHING. NO C/O PAIN AT THIS TIME. PT IS A/O X 2-3. PT ON 3L NC. R AND L FA 20G FLOWING AND PATENT RUNNING NS AT 75 ML/HR.SUÁREZ CATHETER NOTED. ALL SAFETY MEASURES IN PLACE, BED IN LOWEST LOCKED POSITION, SR UP X 2, CALL LIGHT WITHIN REACH.
[2022-02-11 08:10] LABS: BASOPHILS % (AUTO) 0.8 % (0.0-2.0); EOSINOPHILS % (AUTO) 0.6 % (0.0-6.0); LYMPHOCYTES # (AUTO) 0.4 K/uL (0.8-4.8); MEAN CORPUSCULAR HGB CONC 34 g/dl (31.0-36.0); MEAN CORPUSCULAR VOLUME 91 fL (80-96); MONOCYTES # (AUTO) 0.5 K/uL (0.1-1.30); MONOCYTES % (AUTO) 11.2 % (2.0-12.0); NEUTROPHILS # (AUTO) 3.2 K/uL (1.8-8.9); NEUTROPHILS % (AUTO) 78.4 % (43.0-81.0)
--- NOTE | 2022-02-11 08:10 | NUR ---
RN NOTE RECEIVED CRITICAL LAB RESULTS CALCIUM 5.9, ALBUMIN 1.4, HGB 6.0, HCT 18, AND PLATELETS 15. RECEIVED ORDERS FOR TRANSFUSION OF ONE UNIT OR PRBC. MAGNESIUM SULFATE 2GM IV, AND CALCIUM GLUCONATE 2GM IV[address] PLACE ORDERS.
[2022-02-11 08:14] LABS: RED BLOOD CELL COUNT(AUTO) 1.98 MIL/uL (4.5-6.0)
[2022-02-11 08:17] LABS: HEMATOCRIT 18 % (39-51); PLATELET COUNT (AUTO) 15 K/uL (150-450)
--- NOTE | 2022-02-11 08:28 | NUR ---
WOUND CARE CONSULT: REVIEWED CHART, NURSING DOCUMENTATION AND PHOTOS WHICH INDICATE LEFT ANKLE DISCOLORATION (FALL AT SENDING FACILITY REPORTED BY RN), SACRAL STAGE 4 ULCER AND RT BUTTOCK UNSTAGEABLE PRESSURE ULCER, ALL PRESENT ON ADMISSION. RECOMMENDATIONS MADE FOR SKIN PROTECTION AND WOUND CARE. DISCUSSED WITH NURSING STAFF. SURGICAL AND DPM CONSULTS TO BE CALLED THIS AM TO DR MARIANA OHARA AND DR FERNANDEZ. FIRST STEP LOW AIRLOSS MATTRESS IS ON ORDER. MD IN AGREEMENT WITH PLAN OF CARE. Addendum: 02/11/22 at 0842 by CAROLYN ANDRADE WNDNU CORRECTION TO ABOVE NOTE: DR ROSEN FOLLOWING PT FOR SACRAL AND RT BUTTOCK WOUNDS.
[2022-02-11 09:00] LABS: BAND % (MANUAL) 2 % (0.0-5.0); LYMPHOCYTES % (MANUAL) 14 % (16-48); MONOCYTES % (MANUAL) 10 % (0-11.0); NEUTROPHILS % (MANUAL) 74 (42-76)
[2022-02-11] MEDS: risperiDONE 0.25 MG TABLET PO SCH ×2 (09:00→17:00)
[2022-02-11] MEDS ORDERED: COLLAGENASE 30 GM TUBE TP SCH (09:00)
[2022-02-11] MEDS ORDERED: Medication Not On Formulary EA (Cranberry Extract (Cranberry) 425 MG) PO SCH (09:00)
[2022-02-11 09:39] LABS: BASOPHILS # (AUTO) 0.1 K/uL (0.0-0.2); BASOPHILS % (AUTO) 1.2 % (0.0-2.0); EOSINOPHILS % (AUTO) 0.9 % (0.0-6.0); LYMPHOCYTES # (AUTO) 0.4 K/uL (0.8-4.8); LYMPHOCYTES % (AUTO) 7.7 % (20.0-44.0); MEAN CORPUSCULAR HGB CONC 34 g/dl (31.0-36.0); MEAN CORPUSCULAR VOLUME 90 fL (80-96); MONOCYTES # (AUTO) 0.5 K/uL (0.1-1.30); MONOCYTES % (AUTO) 10.7 % (2.0-12.0); NEUTROPHILS # (AUTO) 3.8 K/uL (1.8-8.9); NEUTROPHILS % (AUTO) 79.5 % (43.0-81.0); WHITE BLOOD COUNT (AUTO) 4.8 K/uL (4.3-11.0)
[2022-02-11] MEDS: DOCUSATE SODIUM 250 MG CAPSULE PO SCH ×2 (09:49→17:00)
[2022-02-11] MEDS: FOLIC ACID 1 MG TABLET PO SCH (09:49)
[2022-02-11] MEDS: Magnesium 1GM/D5W 100ML PREMIX 100 ML IV SCH ×2 (09:49→12:34)
[2022-02-11] MEDS: ZINC SULFATE 220 MG CAPSULE PO SCH (09:49)
[2022-02-11] MEDS: ACETAMINOPHEN ES 500 MG TABLET PO SCH (09:50)
[2022-02-11] MEDS: MULTIVIT W/MINERALS 1 TAB TABLET PO SCH (09:50)
[2022-02-11] MEDS: ASCORBIC ACID 500 MG TABLET PO SCH (09:50)
[2022-02-11] MEDS: DIVALPROEX SODIUM 250 MG TABLET.DR PO SCH ×3 (09:50→17:00)
[2022-02-11] MEDS: PROSOURCE / PROSTAT (PYXIS) 30 ML UDC PO SCH ×2 (09:51→17:41)
[2022-02-11] MEDS: GABAPENTIN 300 MG CAPSULE PO SCH ×2 (09:51→21:53)
[2022-02-11] MEDS: PANTOPRAZOLE 40 MG TABLET.DR PO SCH (09:54)
[2022-02-11] MEDS ORDERED: Calcium Gluconate 1GM/10ML 9.3 MEQ in IV D5W 250 ML IV ONE (10:00)
[2022-02-11 10:04] LABS: HEMATOCRIT 18 % (39-51); HEMOGLOBIN 6.1 g/dL (13.5-17.5); PLATELET COUNT (AUTO) 16 K/uL (150-450)
[2022-02-11] MEDS: MORPHINE SULFATE INJ 2 MG/ML DISP.SYRIN IV PRN (10:21)
[2022-02-11] MEDS: ONDANSETRON HCL/PF 4 MG/2 ML VIAL IVP PRN (10:21)
[2022-02-11] MEDS: DAKINS QUARTER STRENGTH (0.125%) 480 ML BOTTLE TOP SCH ×2 (11:01→11:02)
[2022-02-11] MEDS: LORAZEPAM 0.5 MG TABLET SL PRN (12:43)
--- NOTE | 2022-02-11 13:41 | NUR ---
RN NOTE PATIENTS ROMI CAMPBELL, REQUESTED WE HOLD RESPIRADONE AND DEPAKOTE. WILL HOLD AND INFORM PROVIDER.
--- NOTE | 2022-02-11 19:00 | NUR ---
RN NOTE TRANSFUSION ENDED, NO ADVERSE REACTION.
--- NOTE | 2022-02-11 19:23 | NUR ---
RN CLOSING NOTES PT IS RESTING IN BED, NO S/S OF RESP DISTRESS OR SOB. NON LABORED BREATHING. NO C/O PAIN AT THIS TIME. PT IS A/O X3, WITH FAMILY AT BEDSIDE. PT ON 3L NC SATING AT 100%. R AND L FA 20G . ALL SAFETY MEASURES IN PLACE, BED IN LOWEST LOCKED POSITION, SR UP X 2, CALL LIGHT WITHIN REACH. WILL ENDORSE TO THOROUGHBRED HORSE FARM MANAGER NURSE FOR FAM.
[2022-02-11] MEDS: oxyCODONE IR immediate release 5 MG PO PRN (19:50)
--- NOTE | 2022-02-11 19:50 | NUR ---
RN NOTES, PATIENT IN BED, PT IS A/O X3, ON 3LPM VIA NC, NO SOB/ACUTE DISTRESS AT THIS TIME, S/P BLOOD TRANSFUSION, NO ALLERGIC REACTION NOTED, FAMILY AT BEDSIDE, PT C/O PAIN OXYCODONE ADMINISTERED FOR GENERALIZED PAIN 09/02. PLAN FOR WOUND DEBRIDEMENT TOMORROW, FAMILY AWARE, ALL SAFETY MEASURES IN PLACE, BED IN LOCKED AND LOWEST POSITION, SR UP X 2, CALL LIGHT WITHIN REACH, WILL CONTINUE TO MONITOR.
[2022-02-11 22:53] LABS: HEMOGLOBIN 7.2 g/dL (13.5-17.5)
[2022-02-12] VITALS (21 sets, daily range): BP systolic 110–154; BP diastolic 50–85
[2022-02-12] MEDS: ZOLPIDEM TARTRATE 5 MG TABLET PO PRN ×2 (00:23→22:34)
[2022-02-12] MEDS: LORAZEPAM 0.5 MG TABLET SL PRN ×2 (00:44→20:57)
[2022-02-12] MEDS: oxyCODONE IR immediate release 5 MG PO PRN ×4 (01:42→18:48)
[2022-02-12] MEDS: VANCOMYCIN 1 GM in IV D5W 250 ML IV SCH (03:12)
[2022-02-12] MEDS: MEROPENEM 1 G in IV NS 0.9% 100 ML IV SCH ×2 (05:24→18:48)
[2022-02-12 07:24] LABS: BASOPHILS % (AUTO) 0.3 % (0.0-2.0); EOSINOPHILS % (AUTO) 1.5 % (0.0-6.0); HEMATOCRIT 21 % (39-51); LYMPHOCYTES # (AUTO) 0.5 K/uL (0.8-4.8); LYMPHOCYTES % (AUTO) 6.4 % (20.0-44.0); MEAN CORPUSCULAR HGB CONC 33 g/dl (31.0-36.0); MEAN CORPUSCULAR VOLUME 90 fL (80-96); MONOCYTES # (AUTO) 0.3 K/uL (0.1-1.30); MONOCYTES % (AUTO) 4.8 % (2.0-12.0); NEUTROPHILS # (AUTO) 6.2 K/uL (1.8-8.9); RED BLOOD CELL COUNT(AUTO) 2.33 MIL/uL (4.5-6.0); WHITE BLOOD COUNT (AUTO) 7.2 K/uL (4.3-11.0)
--- NOTE | 2022-02-12 07:30 | NUR ---
RN OPENING NOTE PATIENT IN BED RESTING UPON ASSESSMENT, PT IS A/O X3, ON 3LPM VIA NC, NO SOB/ACUTE DISTRESS AT THIS TIME, SR-ST ON TELE MONITOR. PATIENT HAS R/L FA 20G INTACT AND PATENT SALINE LOCK. PATIENT HAS SUÁREZ CATH INTACT AND PATENT DRAINING CLEAR YELLOW URINE. ALL SAFETY MEASURES IN PLACE, BED IN LOCKED AND LOWEST POSITION, SPECIAL MATTRESS IN PLACED. SR UP X 2, CALL LIGHT WITHIN REACH, WILL CONTINUE TO MONITOR.
[2022-02-12 07:40] LABS: CREATININE 2.4 mg/dL (0.6-1.3); POTASSIUM 4.3 mmol/L (3.5-5.1)
[2022-02-12 07:42] LABS: PLATELET COUNT (AUTO) 19 K/uL (150-450)
--- NOTE | 2022-02-12 07:50 | NUR ---
RN NOTES, PATIENT IN BED, PT IS A/O X3, ON 3LPM VIA NC, NO SOB/ACUTE DISTRESS AT THIS TIME, SR-ST ON TELE MONITOR, ON PAIN MANAGEMENT, VITAL SIGNS STABLE, LIMITED HOURS OF SLEEP LAST NIGHT, DESPITE ADMINISTRATION OF MEDICATIONS, ALL SAFETY MEASURES IN PLACE, BED IN LOCKED AND LOWEST POSITION, SPECIAL MATTRESS IN PLACED, WOUND TREATMENT DONE, SR UP X 2, CALL LIGHT WITHIN REACH, WILL ENDORSE CONTINUITY OF CARE TO ONCOMING NURSE.
[2022-02-12] MEDS: ACETAMINOPHEN ES 500 MG TABLET PO SCH (08:18)
[2022-02-12] MEDS: MULTIVIT W/MINERALS 1 TAB TABLET PO SCH (08:18)
[2022-02-12] MEDS: FOLIC ACID 1 MG TABLET PO SCH (08:18)
[2022-02-12] MEDS: GABAPENTIN 300 MG CAPSULE PO SCH ×2 (08:18→22:34)
[2022-02-12] MEDS: DOCUSATE SODIUM 250 MG CAPSULE PO SCH ×2 (08:18→16:48)
[2022-02-12] MEDS: PANTOPRAZOLE 40 MG TABLET.DR PO SCH (08:19)
[2022-02-12] MEDS: ASCORBIC ACID 500 MG TABLET PO SCH (08:19)
[2022-02-12] MEDS: ZINC SULFATE 220 MG CAPSULE PO SCH (08:19)
[2022-02-12] MEDS: DIVALPROEX SODIUM 250 MG TABLET.DR PO SCH ×2 (08:23→12:18)
[2022-02-12] MEDS: risperiDONE 0.25 MG TABLET PO SCH (08:27)
[2022-02-12] MEDS: PROSOURCE / PROSTAT (PYXIS) 30 ML UDC PO SCH ×2 (08:28→16:48)
[2022-02-12] MEDS: DAKINS QUARTER STRENGTH (0.125%) 480 ML BOTTLE TOP SCH ×2 (08:42)
[2022-02-12] MEDS ORDERED: NS 0.9% IV ONE (10:00)
[2022-02-12] MEDS ORDERED: CALCIUM GLUCONATE IV ONE (10:00)
--- NOTE | 2022-02-12 13:43 | NUR ---
patient more altered ,respiration diapragmatic 8 to 12,INSTITUTION DIRECTOR CALLED.
--- NOTE | 2022-02-12 13:45 | NUR ---
DR. BLANCHARD AT BEDSIDE TALKING TO FAMILY.
[2022-02-12 13:48] LABS: ABG BASE EXCESS -6.9 mmol/L; ABG OXYGEN SATURATION 97.4 % (92.0-98.5); ABG PH 7.344 (7.350-7.450); ABG PO2 93.5 mmHg (75.0-100.0); COHb 0.4 % (0.5-1.5); MetHb 0.3 % (0.0-1.5); O2Hb 96.7 % (94.0-97.0); SITE, ABG Right Brachial; VENT MODE, BG NASAL CANNULA
--- NOTE | 2022-02-12 14:04 | NUR ---
TRANSFERRED TO PER DR. SANTO TOMLIN.
--- NOTE | 2022-02-12 14:08 | NUR ---
RN NOTES Transferred from [facility] oxygen titration BiPAP rescue as necessary, gentle IV fluids as per heme-onc, will reserve pleural tap for respiratory compromise, presently his gas exchange is intact and increased work of breathing is primarily secondary to his multi lobar pneumonic process. patient DNR/DNI status. patient getting one unit of blood transfusion at this time, t-98.1, bp- 128/78, p-116, patient on o2-2lnc using expressor muscle. patient total care. call light within to reach. will follow up.
--- NOTE | 2022-02-12 14:08 | NUR ---
RN NOTE PATIENT BLOOD TRANSFUSION STARTED IN [facility]. V/S STABLE. PATIENT TRANSFERRED TO ICU PER ROLL PRESS OPERATOR. PATIENT TRANSFERRED WHILE BLOOD RUNNING AND REPORT GIVEN TO LEELEE.
--- NOTE | 2022-02-12 14:14 | NUR ---
BLOOD SUGAR 109.
[2022-02-12 15:35] LABS: D-DIMER 2.65 mg/L(FEU (0.17-0.50)
[2022-02-12 15:51] LABS: BAND % (MANUAL) 2 % (0.0-5.0); LYMPHOCYTES % (MANUAL) 7 % (16-48); MONOCYTES % (MANUAL) 2 % (0-11.0); NEUTROPHILS % (MANUAL) 89 (42-76)
--- NOTE | 2022-02-12 16:00 | NUR ---
RN NOTES FINISHED BLOOD TRANSFUSION AT THIS TIME, NO SIGN ND SYMPTOMS OF REACTION NOTED AT THIS TIME BP 133/78, P-112, R-12, T-98.1, O2-98 2LNC. PATIENT DNR/DNI AT THIS TIME GET CALL FROM LAB PLATELET IS 18, NOTIFIED HOSPITALIST MOOK, AND GET TO ORDER [facility] WITHIN ONE HR AFTER BLOOD TRANSFUSION. ORDER TAKEN AD CARRIED OUT. FAMILY NEXT TO THE PATIENT. WILL FOLLOW UP.
[2022-02-12] MEDS: MORPHINE SULFATE INJ 2 MG/ML DISP.SYRIN IV PRN (16:50)
--- NOTE | 2022-02-12 16:50 | NUR ---
RM NOTED ADMINISTERED MORPHINE SULFATE 2 MG/ML IV PUSH 07/03 PER PATIENT REQUEST GENERALIZED , BP 140/73, P-112, R-17, O2-97 2LNC. FAMILY NEXT TO THE BED. PER FAMILY REQUEST ASKING TO REMOVE PSYCH MEDICATION, NOTIFIED DR MITCHELL AND GET TO ORDER TO D/C DEPAKOTE, AND RISPERDAL . ORDER TAKEN AND CARRIED OUT.
--- NOTE | 2022-02-12 17:07 | NUR ---
RN NOTES PATIENT SELECTIVE WITH PO MEDICATION.
[2022-02-12 17:34] LABS: BASOPHILS # (AUTO) 0.1 K/uL (0.0-0.2); BASOPHILS % (AUTO) 0.8 % (0.0-2.0); EOSINOPHILS % (AUTO) 1.3 % (0.0-6.0); HEMATOCRIT 25 % (39-51); HEMOGLOBIN 8.2 g/dL (13.5-17.5); LYMPHOCYTES # (AUTO) 0.5 K/uL (0.8-4.8); LYMPHOCYTES % (AUTO) 6.4 % (20.0-44.0); MEAN CORPUSCULAR HGB CONC 33 g/dl (31.0-36.0); MEAN CORPUSCULAR VOLUME 90 fL (80-96); MONOCYTES # (AUTO) 0.4 K/uL (0.1-1.30); MONOCYTES % (AUTO) 4.7 % (2.0-12.0); NEUTROPHILS # (AUTO) 6.5 K/uL (1.8-8.9); NEUTROPHILS % (AUTO) 86.8 % (43.0-81.0); RED BLOOD CELL COUNT(AUTO) 2.76 MIL/uL (4.5-6.0); WHITE BLOOD COUNT (AUTO) 7.5 K/uL (4.3-11.0)
[2022-02-12 17:50] LABS: PLATELET COUNT (AUTO) 16 K/uL (150-450)
[2022-02-12 18:15] LABS: BAND % (MANUAL) 3 % (0.0-5.0); LYMPHOCYTES % (MANUAL) 10 % (16-48); NEUTROPHILS % (MANUAL) 78 (42-76)
[2022-02-12 18:16] LABS: EOSINOPHILS % (MANUAL) 3 % (0-4); MONOCYTES % (MANUAL) 6 % (0-11.0)
--- NOTE | 2022-02-12 18:48 | NUR ---
rn notes administered oxy ir 30 mg po prn for pain 10/10 generalized per patient request bp-142/83, p-97, r-116, o2-96 nc 2l. patient total assist for dinner tolerated 15%. due medication administered, endorsed oncoming nurse follow plan of care.
[2022-02-13] VITALS (12 sets, daily range): BP systolic 124–145; BP diastolic 58–82
[2022-02-13] MEDS ORDERED: ALBUTEROL FS 2.5 MG/3 ML VIAL.NEB NEB PRN
--- NOTE | 2022-02-13 | NUR ---
received the pt rest in bed,awake, drowsy.oxygen 2l via nasal cannula. sat 96%,hob elevated, fc patent. urine draining. sacral wound, . family at bed side, will monitor vitals.
[2022-02-13] MEDS: MORPHINE SULFATE INJ 2 MG/ML DISP.SYRIN IV PRN (01:16)
--- NOTE | 2022-02-13 01:28 | NUR ---
icu manager. family decided to comfort measure ,notified rochelle. ordered morphine drip.
[2022-02-13] MEDS ORDERED: MORPHINE SULFATE INJ 4 MG/ML DISP.SYRIN ONE (01:56)
[2022-02-13] MEDS ORDERED: MORPHINE SULFATE INJ 2 MG/ML DISP.SYRIN ONE (01:57)
[2022-02-13] MEDS ORDERED: D5W IV PRN (02:00)
[2022-02-13] MEDS ORDERED: MORPHINE SULFATE IV PRN (02:00)
--- NOTE | 2022-02-13 02:15 | NUR ---
curriculum development coordinator. pt family at bed side. now started morphine drip for comfort.transfer the pt to room 329, report given to RN.
--- NOTE | 2022-02-13 03:14 | NUR ---
RECEIVED REPORTS FROM THE CHROME TANNER FOR CONTINUITY OF CARE. PATIENT IS AWAKE, TALKING TO THE FAMILY MEMBERS AT THE BEDSIDE. ON MORPHINE DRIP AT2MG/HR. PATIENT IS COMFORTABLE AT THIS TIME. NO SIGNS DISCOMFORT.
[2022-02-13] MEDS ORDERED: KEY,NONCONTROL,TO KEEP IN PYXI 1 EA MC ONE ×5 (05:45→07:51)
--- NOTE | 2022-02-13 05:56 | NUR ---
PATIENT COMPLAINED OF DIFFICULTY BREATHING, INCREASED O2 TO 4L/MIN NASAL CANNULA. PATIENT CALMED DOWN.
--- NOTE | 2022-02-13 05:57 | NUR ---
PATIENT IS RESTLESS AND IN PAIN, FAMILY MEMBERS REQUESTED TO INCREASE THE MORPHINE DRIP. RATE INCREASED TO 3MG FROM 2MG.
--- NOTE | 2022-02-13 06:23 | NUR ---
PATIENT STILL RESTLESS, MORPHINE DRIP INCREASED TO 4MG.
--- NOTE | 2022-02-13 06:43 | NUR ---
patient still anxious and restless, morphine drip increased to 5mg.
--- NOTE | 2022-02-13 07:01 | NUR ---
patient still restless, morphine drip increased to 6mg/hour.
--- NOTE | 2022-02-13 07:21 | NUR ---
DENTURE MODEL MAKER NOTES RECEIVED PT AWAKE IN BED WITH FAMILY AT BEDSIDE. HOB ELEVATED. PT IS A/O X2-3. ABLE TO COMMUNICATE VERBALLY. PT ON COMFORT MEASURES ONLY. BREATHING NOTED WITH SLIGHT SOB, CONTINUES ON VIA N/C AT 2LPM. PT ON MORPHINE DRIP AT 6MG/HR AT THIS TIME VIA IV ACCESS ON . SAFETY MEASURES IN PLACE: BED IN LOWEST LOCKED POSITION WITH SIDE-RAILS UP X2. CALL LIGHT W/IN REACH. WILL CONTINUE TO MONITOR PT.
--- NOTE | 2022-02-13 07:41 | NUR ---
RN NOTES PATIENT NOTED RESTLESS, MORPHINE DRIP INCREASED TO 7MG.
--- NOTE | 2022-02-13 08:11 | NUR ---
RN NOTES PT NOTED RESTLESS, FAMILY REQUESTED TO INCREASE MORPHINE DRIP. RATE INCREASED TO 8MG AT 0810.
[2022-02-13] MEDS ORDERED: MORPHINE SULFATE PF DRIP 250 MG in IV D5W 240 ML IV PRN (09:00)
[2022-02-13] MEDS ORDERED: LORAZEPAM INJ 2 MG/ML VIAL IV PRN (09:00)
--- NOTE | 2022-02-13 09:05 | NUR ---
RN NOTES PT IS RESTLESS WITH MILD SOB, FAMILY REQUESTED TO INCREASE MORPHINE DRIP. RATE INCREASED FORM 8MG TO 9MG AT 0905. WILL CONTINUE TO MONITOR PT'S STATUS.
--- NOTE | 2022-02-13 10:00 | NUR ---
RN NOTES MORPHINE DRIP BAG NOTED EMPTY AND REPLACED WITH NEW BAG OF MORPHINE 250MG/250ML AT 9MG/HR AT 0952 AND WAS VERIFIED BY ANOTHER RN SHEREE EPSTEIN.
--- NOTE | 2022-02-13 10:15 | NUR ---
RN NOTES PT NOTED RESTLESS, FAMILY REQUESTED FOR ATIVAN. PRN ATIVAN 1MG/0.5ML IVP ADMINISTERED AT 1011. WILL CONTINUE TO MONITOR PT
--- NOTE | 2022-02-13 11:27 | NUR ---
RN NOTES PT IS RESTLESS, FAMILY REQUESTED TO INCREASE MORPHINE DRIP. RATE INCREASED FORM 9MG TO 10MG AT 1128. WILL CONTINUE TO MONITOR Pt.
--- NOTE | 2022-02-13 16:27 | NUR ---
RN DISCHARGED NOTES PT DISCHARGED TO [facility]PICE GENER[facility] ( [facility]) UNDER DEDICATED HOSPICE. PT IS A/O X1-2. LETHARGIC AT THIS TIME. FAMILY AT BEDSIDE AND SIGNED DISCHARGED PAPERS. FAMILY REFUSED PHONOGRAPHS OF WOUNDS AND ANY SKIN ISSUES. PT WILL CONTINUE WITH PREVIOUS COMFORT NEEDS ORDERED. MD AND CHARGE NURSE AWARE OF DISCHARGE.
== END 2022-02-13 16:14 | disposition hospice, inpatient (51) | DRG 871 ==
LOC: ER 02:10 → TRANSITION 04:45 → TELE1 11:38 → ICU 02-12 14:03 → HOSPICE 02-13 02:39
PROVIDERS: ADMIT Nurse Practitioner Acute Care; ATTEND Internal Medicine
PROC: 30233N1 Transfusion of Nonautologous Red Blood Cells into Peripheral Vein, Percutaneous Approach (ICD-10-PCS; principal; 2022-02-11)
DX: A40.9 Streptococcal sepsis, unspecified (principal); L89.154 Pressure ulcer of sacral region, stage 4; G93.41 Metabolic encephalopathy; N17.0 Acute kidney failure with tubular necrosis; E43 Unspecified severe protein-calorie malnutrition; J15.9 Unspecified bacterial pneumonia; I61.1 Nontraumatic intracerebral hemorrhage in hemisphere, cortical; N39.0 Urinary tract infection, site not specified; E87.1 Hypo-osmolality and hyponatremia; C90.00 Multiple myeloma not having achieved remission; R64 Cachexia; Z68.1 Body mass index [BMI] 19.9 or less, adult; D61.818 Other pancytopenia; D68.9 Coagulation defect, unspecified; J90 Pleural effusion, not elsewhere classified; J44.0 Chronic obstructive pulmonary disease with (acute) lower respiratory infection; D69.59 Other secondary thrombocytopenia; E86.1 Hypovolemia; N18.9 Chronic kidney disease, unspecified; Z20.822 Contact with and (suspected) exposure to COVID-19; Z87.891 Personal history of nicotine dependence; G40.909 Epilepsy, unspecified, not intractable, without status epilepticus; I12.9 Hypertensive chronic kidney disease with stage 1 through stage 4 chronic kidney disease, or unspecified chronic kidney disease; Z66 Do not resuscitate; Z51.5 Encounter for palliative care; Z88.8 Allergy status to other drugs, medicaments and biological substances; Z79.899 Other long term (current) drug therapy; Z79.51 Long term (current) use of inhaled steroids; B96.89 Other specified bacterial agents as the cause of diseases classified elsewhere; D64.9 Anemia, unspecified; D69.6 Thrombocytopenia, unspecified; B19.20 Unspecified viral hepatitis C without hepatic coma; E78.5 Hyperlipidemia, unspecified; E53.8 Deficiency of other specified B group vitamins; Z91.81 History of falling; F25.1 Schizoaffective disorder, depressive type; E88.09 Other disorders of plasma-protein metabolism, not elsewhere classified; D72.822 Plasmacytosis; B35.1 Tinea unguium; E83.51 Hypocalcemia; K76.0 Fatty (change of) liver, not elsewhere classified; L89.310 Pressure ulcer of right buttock, unstageable; H70.93 Unspecified mastoiditis, bilateral; R26.2 Difficulty in walking, not elsewhere classified
CPT/HCPCS: 36415; 36600; 70450-TC; 70551-TC; 71045-TC; 71250-TC; 73610-TC; 80048-TC; 80053-TC; 80076-TC; 80202-TC; 81001; 82140-TC; 82272-TC; 82803-TC; 83605-TC; 83735-TC; 84100-TC; 84484-TC; 85025-TC; 85027-TC; 85396; 85730-TC; 86850-TC; 87040-TC; 87081-TC; 87086-TC; 87186-TC; 94799-TC; A4217; A6403; C9803; G0378; J0610; J0692; J1644; J2060; J2185; J2270; J2274; J2405; J3370; J3475; J7030; J7040; J7050; J7060; P9016; U0003

== ENCOUNTER 2022-02-13 16:27 | Inpatient (IN) | payer OTHER ==
[~2022-02-13 16:27] MED LIST changes: +ACET-2605 PO; +ACET-868 PO; +AMIN30LI2 PO; +ASCO-352 PO; +COLL30OI TP; +CRAN425C6 PO; -DIVA250T4 PO; +FENT1PAT5 TD; +FOLI0.4T6 PO; -Folic Acid PO; +GEL100GE TD; +MAGN400O6 PO; +MULT-447 PO; +NA P133E RC; -RISP0.2515 PO; -SODI473S8 TOP; +ZINC220C6 PO
[2022-02-13] MEDS: LORAZEPAM INJ 2 MG/ML VIAL IV PRN ×2 (17:04→19:55)
--- NOTE | 2022-02-13 17:08 | NUR ---
RN NOTES PT NOTED RESTLESS, FAMILY REQUESTED FOR ATIVAN. PRN ATIVAN 1MG/0.5ML IVP ADMINISTERED AT 1704. WILL CONTINUE TO MONITOR PT
[2022-02-13] MEDS: MORPHINE SULFATE PF DRIP 250 MG in IV D5W 240 ML IV PRN (17:26)
--- NOTE | 2022-02-13 18:27 | NUR ---
CANDY DEPARTMENT MANAGER ADMITTING NOTES PT ADMITTED TO [facility]OSPICE GENERAL [facility]PAT[facility] ( [facility]) UNDER DED[facility]. PT IN BED WITH FAMILY AT BEDSIDE. HOB ELEVATED. PT IS A/O X1-2. ABLE TO COMMUNICATE VERBALLY IN DELAYED RESPONSE. PT IS DNR AND ON COMFORT MEASURES ONLY. ON 02 VIA N/C AT 2LPM, NOTED WITH MILD SOB ON AND OFF. PT ON MORPHINE DRIP AT 10MG/HR AT THIS TIME VIA IV ACCESS ON RFA. SUÁREZ CATHETER IN PLACED AND DRAINING CLEAR YELLOW URINE. SAFETY MEASURES IN PLACED: BED IN LOWEST LOCKED POSITION WITH SIDE-RAILS UP X2. CALL LIGHT W/IN REACH. WILL CONTINUE TO MONITOR PT.
--- NOTE | 2022-02-13 19:00 | NUR ---
RN CLOSING NOTES PT IN BED ASLEEP AT THIS TIME, AWAKENS TO TACTILE AND VERBAL STIMULI. HOB ELEVATED. FAMILY AT BEDSIDE. PT ON 02 VIA N/C AT 2LPM, TOLERATING WELL AT THIS TIME. PT ON MORPHINE DRIP AT 10MG/HR AT THIS TIME, TITRATE 1MG EVERY 15MINUTES PRN. SUÁREZ IN PLACE AND DRAINING YELLOW URINE, SUÁREZ CARE DONE. SAFETY MEASURES MAINTAINED; BED IN LOWEST LOCKED POSITION WITH SIDE-RAILS UP X2. CALL LIGHT W.I EASY REACH. WILL ENDORSE TO LIBRARY SCIENCE INSTRUCTOR NURSE.
--- NOTE | 2022-02-13 19:30 | NUR ---
STUDENT SUCCESS COACH NOTES RECEIVED ON BED,WITH FOUR FAMILY MEMBERS AT BEDSIDE,AGONAL BREATHING NOTED,ON COMFORTS MEASURES,MORPHINE DRIP AN PROGRESS AT 10MG/HR RATE VIA PLASTIC TILE SETTER PUMP,WITH SUÁREZ CATH IN PLACE DRAINING YELLOWISH URINE OUT.SALINE LOCK ON BOTH ARMS INTACT AND PATENT.ON [employer] MATTRESS FOR SKIN MANAGEMENT.WILL CONTINUE TO MONITOR STATUS.
--- NOTE | 2022-02-13 19:55 | NUR ---
BLOOD BANK BOOKING CLERK NOTES AGONAL BREATHING NOTED,FAMILY REQUESTED FOR ATIVAN 1 MG IV ORDERED,GIVEN
[2022-02-13 20:00] VITALS: BP 142/71
--- NOTE | 2022-02-13 22:15 | NUR ---
INTELLIGENCE SPECIALIST NOTES HAVING TEMPERATURE OF 101.4,HOSPICE NURSE NAME VONDA MADE AWARE AND SAYS,ORDER TYLENOL SUPPOSITORY 650MG PER RECTUM Q [address] VILLANUEVA,NOTED AND CARRIED OUT.
--- NOTE | 2022-02-13 22:21 | NUR ---
SENIOR SOFTWARE PROJECT MANAGER NOTES TYLENOL 650MG SUPPOSITORY ADMINISTERED ORDERED FOR BODY TEMPERATURE OF 101.4.COOLING MEASURES ALSO APPLIED ON BOTH AXILLA.
[2022-02-13] MEDS ORDERED: ACETAMINOPHEN 650 MG/SUPP.RECT RC PRN (22:30)
--- NOTE | 2022-02-14 00:45 | NUR ---
SORTING LIVESTOCK WORKER NOTES BODY TEMPERATURE RECHECK 99.2,FAMILY REMOVED COOLING MEASURES
--- NOTE | 2022-02-14 07:34 | NUR ---
CONFERENCE SERVICES DIRECTOR NOTES RECEIVED PATIENT ON BED,WITH THREE FAMILY MEMBERS AT BEDSIDE,AGONAL BREATHING NOTED,ON COMFORTS MEASURES,MORPHINE DRIP AN PROGRESS AT 10MG/HR RATE VIA CELLULOID TRIMMER PUMP,WITH SUÁREZ CATH IN PLACE DRAINING YELLOWISH URINE OUT. PATIENT HAS IV ACCESS TO L HAND # 22 INTACT AND PATENT.ON [employer] MATTRESS FOR SKIN MANAGEMENT. SAFETY MEASURES IN PLACE, BED LOW LOCKED AND CALL LIGHT WITHIN REACH, WILL CONTINUE TO MONITOR STATUS.
[2022-02-14] MEDS: MORPHINE SULFATE PF DRIP 250 MG in IV D5W 240 ML IV PRN ×5 (07:46→09:57)
[2022-02-14 08:00] VITALS: BP 125/71
[2022-02-14] MEDS ORDERED: KEY,NONCONTROL,TO KEEP IN PYXI 1 EA MC ONE ×2 (10:25→15:12)
--- NOTE | 2022-02-14 14:19 | NUR ---
RN NOTE UPON ROUNDS PATIENT NOTED NOT TO BE BREATHING, ANOTHER NURSE CALLED TO VERIFY
--- NOTE | 2022-02-14 14:21 | NUR ---
ALUMINUM POLISHER NOTE CALLED IN TO ASSESS PATIENT. PT WAS FOUND BREATHLESS, PULSELESS WITH NO AUDIBLE SOUNDS. NO PULSES PALPABLE. PT IS DNR/DNI. FAMILY AT BEDSIDE. NOTIFIED. PRONOUNCED .
--- NOTE | 2022-02-14 15:26 | NUR ---
INTEGRATION LEAD NOTE RN ASSESSED PATIENT, PT WAS FOUND BREATHLESS, PULSELESS WITH NO AUDIBLE SOUNDS. NO PULSES PALPABLE. PT IS DNR/DNI. FAMILY AT BEDSIDE. NOTIFIED. PRONOUNCED @ 1420. PATIENTS MORTUARY CALLED, [employer] CALLED, ALL BELONGINGS TAKEN WITH FAMILY. POST MORTEM CARE PERFORMED. PATIENT WILL BE PICKED UP BY MORTUARY
== END 2022-02-14 14:20 | DRG 871 ==
LOC: HOSPICE 16:27
PROVIDERS: ADMIT Internal Medicine; ATTEND Internal Medicine
DX: A41.9 Sepsis, unspecified organism (principal); N17.0 Acute kidney failure with tubular necrosis; E43 Unspecified severe protein-calorie malnutrition; J13 Pneumonia due to Streptococcus pneumoniae; G93.41 Metabolic encephalopathy; C90.00 Multiple myeloma not having achieved remission; E87.1 Hypo-osmolality and hyponatremia; J90 Pleural effusion, not elsewhere classified; J44.0 Chronic obstructive pulmonary disease with (acute) lower respiratory infection; N39.0 Urinary tract infection, site not specified; N18.9 Chronic kidney disease, unspecified; I12.9 Hypertensive chronic kidney disease with stage 1 through stage 4 chronic kidney disease, or unspecified chronic kidney disease; Z66 Do not resuscitate; Z87.891 Personal history of nicotine dependence; E78.5 Hyperlipidemia, unspecified; D64.9 Anemia, unspecified; F09 Unspecified mental disorder due to known physiological condition; F20.9 Schizophrenia, unspecified; F32.A Depression, unspecified; Z79.51 Long term (current) use of inhaled steroids; Z79.899 Other long term (current) drug therapy; E88.09 Other disorders of plasma-protein metabolism, not elsewhere classified
CPT/HCPCS: G0378; J2060; J2274; J7060